=== PATIENT | female | born 1935 | race Caucasian/White ===

== ENCOUNTER 2023-12-16 14:12 | Inpatient (IN) | payer OTHER, SELFPAY ==
[2023-12-16 11:16] VITALS: BP 126/74
[2023-12-16 11:37] VITALS: BP 140/79
[2023-12-16 11:53] LABS: % Basophils 0.4 % (0-2); % Eosinophils 1.2 % (0-6); % Immature Granulocytes 0.3 % (0-0.5); % Monocytes 10.3 % (1.7-9.3); % Neutrophils 71.8 % (42.2-75.2); Absolute Basophils 0.1 10^3/uL (0-0.2); Absolute Eosinophils 0.1 10^3/uL (0-0.7); Absolute Lymphocytes 1.9 10^3/uL (1.2-3.4); Absolute Monocytes 1.2 10^3/uL (0.1-0.6); Absolute Neutrophils 8.4 10^3/uL (1.4-6.5); Hematocrit 35.2 % (37.0-47.0); Hemoglobin 13.1 g/dL (12.0-16.0); Mean Corp Hgb Conc. 37.2 g/dL (33.0-37.0); Mean Corpuscular Hgb 34.1 pg (27.0-31.0); Mean Corpuscular Volume 91.7 fL (81.0-99.0); Mean Platelet Volume 10.7 fL (7.4-10.4); Nucleated Red Blood Cells % 0 %; Platelet Count 231 10^3/uL (130-400); Red Blood Cell Count 3.84 10^6/uL (4.20-5.40); Red Cell Dist. Width 11.6 % (11.5-14.5); White Blood Cell Count 11.7 10^3/uL (4.8-10.8)
[2023-12-16 12:00] VITALS: BP 148/55
[2023-12-16 12:05] LABS: Blood Urea Nitrogen 22 mg/dl (7-17); Calcium 9.2 mg/dl (8.4-10.2); Carbon Dioxide 17 mmol/L (22-30); Chloride 89 mmol/L (98-107); Glucose 71 mg/dl (70-99); Sodium 125 mmol/L (135-145); eGFR > 60.00
--- NOTE | 2023-12-16 12:07 | ED.GENMED ---
History of Present Illness
General
Chief Complaint: Breathing Problem
Source: patient
Time Seen by Provider: 12/16/23 11:52
History of Present Illness
History of Present Illness:
88yoF with a history of coronary artery disease status post PCI, diastolic CHF, hypertension, and hyperlipidemia presenting with her for evaluation of shortness of breath. Patient reports exertional dyspnea for the past 3 weeks. She states
that she is unable to do her normal activities around the house without feeling short of breath. She also reports chest pressure with activity. She has no shortness of breath at rest and denies any orthopnea. She had a cough at symptom onset this
has since resolved. Patient denies any leg swelling. She also reports malaise and has been feeling confused. She has been drinking a lot of fluids over the past few days. Patient had a cardiac catheterization in January 2023 and ejection fraction
was 56% at that time.
Past History
Past History
ED Past Medical History: CAD, GERD, HTN, Hypercholesterolemia, [place] and Other (Diverticulitis, arthritis, macular degeneration, anxiety)
ED Past Surgical History: Other (Incarcerated hernia repair, colostomy and reversal, bilateral total hip replacements, cholecystectomy)
Social History
Tobacco: Former smoker
Alcohol: None
Personal:
Living: with family
Employment: Retired
Phy Exam
General Physical Exam
General Presentation: well appearing and no apparent distress
General age: appears stated age
General Skin: warm and dry
General Habitus: normal
General Mental: alert
ENT Exam
ENT Exam: normocephalic
Cardiovascular Exam
Cardiovascular Exam: regular rate/rhythm and no edema
Pulmonary Exam
Pulmonary Exam: lungs clear, no respiratory distress, no crackles and no wheezing
[place] Coma Scale
Eye Opening: Spontaneous
Verbal Response: Oriented
Motor Response: Obeys Commands
GCS Total Score: 15
Skin Exam
Skin Exam: normal color and warm/dry
Psychiatric Exam
Psychiatric Exam: normal mood/affect
Scores
Heart Failure Risk
Heart Failure Risk Score: Not Applicable
Course
Orders/Labs/Results
Orders:
Orders
12/16/23 11:22
EKG [Electrocardiogram (*1)] Urgent
Reason for Study: Shortness of Breath
EKG- Treatment ONCE
12/16/23 11:43
Basic Metabolic Panel Urgent
Complete Blood Count/With Diff Urgent
NT-proBNP Urgent
Troponin I Urgent
12/16/23 12:07
CR Chest - 2 Views Urgent
Comment:
Reason For Exam: SOB
12/16/23 13:27
Chloride, Urine [S] Urgent
Date Specimen was Collected: 12/16/23
Time Specimen was Collected: 13:25
Osmolality, Random Urine Urgent
Date Specimen was Collected: 12/16/23
Time Specimen was Collected: 13:25
Urine Sodium Urgent
Date Specimen was Collected: 12/16/23
Time Specimen was Collected: 13:25
12/16/23 13:47
Admit/Transfer Patient As Directed
Co-Sign Provider:
Level of Care: Inpatient admission
Assign to:: Telemetry
Physician / Group: [email or web address]
Diagnosis: MEJIA with ADL Exertional Chest pressure DDX: HFpEF flare
Reason for Telemetry: Acute Heart Failure
Date to Stop Telemetry: 12/19/23
Time to Stop Telemetry: 11:00
Reason for Hospitalization: MEJIA with ADL: POx hi 90s
Exertional Chest pressure
DDX: suspect acute on chr diastolic CHF
Expected length of stay greater than two midnights?: Yes
ELOS- Estimated Length of Stay in days: 3
I certify the patient meets the requirements for IP care: Yes
12/16/23 13:49
Code Status As Directed
Resuscitation Status: Full Code
12/16/23 14:56
Albuterol [ProAIR HFA INHALER] 2 puff INH R Q4HPRN PRN
Furosemide [Lasix] 40 mg IV NOW STA
Nitroglycerin Sublingual [Nitrostat (Sublingual)] 0.4 mg SL [id number] PRN
12/16/23 14:56
CARDIOLOGY CONSULT Routine
Consulting Provider: Remberto Shrestha
Was physician already notified: Yes
Reason for consult: MEJIA with ADL: POx hi 90s Exertional Chest pressure DDX: HFpEF flare
HF DIETARY CONSULT Routine
HF EDUCATOR CONSULT Routine
Comment:
Activity As Directed
Activity Level: With Assistance
Intake/ Output As Directed
Frequency: Per unit guidelines
Patient Education As Directed
Type: CHF folder
Comment: give on admission. Document in Interdisciplinary Education record
Sleep Apnea Assessment by RN As Directed
Comment:
Physician Instructions:
Vital Signs As Directed
Frequency: Other
Additional Instructions:: Q12 or per unit guidelines if more frequent.
Weight As Directed
Frequency: Daily
Type of Scale: Standing Scale
Comment: Daily morning weight. If unable to stand, use balanced bed scale.
Weight As Directed
Frequency: Once
Type of Scale: Standing Scale
Comment: Upon Admission. If unable to stand, use balanced bed scale.
Pulse Ox/cont/shift [RESP] Routine
Quantity: 1
Special Instructions: Daily pulse oximetry at rest. If greater than 92% at rest also obtain pulse oximetry
while ambulating as tolerated.
DX Deep Vein Thrombosis Video Routine
12/16/23 Dinner
Cholesterol Lowering
At Your Request: Full Participation
Fluid Restriction: 1200 mL/day (40 oz)
Cholesterol Lowering: Sodium, 2 Gram
12/16/23 15:57
Potassium Urgent
12/16/23 18:00
Atorvastatin [Lipitor] 10 mg PO QPM
Enoxaparin Sodium [Lovenox] 40 mg SC QPM
12/17/23 06:00
Electrocardiogram (*1) IN AM
Reason for Study: Other
Other Reason for Exam: heart failure
Basic Metabolic Panel IN AM
Cardiovascular Evaluation IN AM
Complete Blood Count/No Diff IN AM
Lkwmy-Vhnw-Xmukidn IN AM
12/17/23 08:00
Amlodipine [Norvasc] 5 mg PO DAILY
Aspirin Low Dose EC [Aspir Low (Enteric Coated)] 81 mg PO DAILY
Losartan [Cozaar] 50 mg PO DAILY
Metoprolol Xl [Toprol Xl] 25 mg PO DAILY
12/18/23 06:00
Basic Metabolic Panel IN AM
12/19/23 06:00
Basic Metabolic Panel IN AM
12/19/23 11:00
DC Protocol for Telemetry ONCE
Abnormal Lab Results
12/16/23 12/16/23
11:43 13:27
WBC 11.7 H 10^3/uL
(4.8-10.8)
RBC 3.84 L 10^6/uL
(4.20-5.40)
Hct 35.2 L %
(37.0-47.0)
MCH 34.1 H pg
(27.0-31.0)
MCHC 37.2 H g/dL
(33.0-37.0)
MPV 10.7 H fL
(7.4-10.4)
Absolute Neuts (auto) 8.4 H 10^3/uL
(1.4-6.5)
Absolute Monos (auto) 1.2 H 10^3/uL
(0.1-0.6)
Lymphocytes % 16.0 L %
(20.5-51.1)
Monocytes % 10.3 H %
(1.7-9.3)
Sodium 125 L mmol/L
(135-145)
Chloride 89 L mmol/L
(98-107)
Carbon Dioxide 17 L mmol/L
(22-30)
BUN 22 H mg/dl
(7-17)
Urine Osmolality 251 L mOsm/kg
(300-900)
12/16/23 11:43
12/16/23 13:24
Vital Signs
Initial and Last Documented VS:
Initial Vital Signs
Temp Pulse Resp BP Pulse Ox
97.8 F 80 20 126/74 97
12/16/23 11:16 12/16/23 11:16 12/16/23 11:16 12/16/23 11:16 12/16/23 11:16
Last Documented Vital Signs
Temp Pulse Resp BP Pulse Ox
97.8 F 69 16 173/56 97
12/16/23 19:19 12/16/23 19:19 12/16/23 19:19 12/16/23 19:19 12/16/23 19:19
MDM/Problems Addressed
Differential Diagnosis Includes:
88yoF here with exertional dyspnea x several weeks. She has also overall not been feeling well and feels confused. She is afebrile and hemodynamically stable. She appears euvolemic on exam. Differential diagnosis includes but is not limited to:
angina, pneumonia, dehydration, less likely CHF exacerbation
Initial ED plan: Check cardiac labs, EKG, and CXR.
*EKG
Interpreted by ED Provider?: Yes
EKG Intrepretation Date: 12/16/23
Heart Rate: 66
Rate: normal
Rhythm: sinus
[place]: normal axis
Interval: normal interval
QRS Pattern: normal QRS
Ischemia: no ischemia
*Critical Care Note
Total Time (30-74mins, 75-104mins- exclusive of procedures): Not Applicable
Update Note
Update Note:
Labs reveal a sodium of 125 which appears to be new. Chloride 89 and bicarb 17. BNP is decreased from prior and no pulmonary edema present on CXR. EKG shows NSR without ischemic changes and troponin WNL. Urine studies ordered and she was admitted
for further evaluation.
ED Attending Note
-
Portions of this chart may have been created with voice recognition software.� Occasional wrong word or��sound alike� substitutions may have occurred due to the inherent limitations of voice recognition software.
Discharge Plan
Departure
Patient Disposition: Admit
Date of Disposition: 12/16/23
Time of Disposition: 13:28
Presentation/result/management discussed w/ accepting MD/DO: Hospitalist
Discharge Problem:
Hyponatremia, Exertional dyspnea
Interventions
Interventions:
*Risk Screen - Suicide Last Done: 12/16/23 11:16
*General Assessment Last Done: 12/16/23 11:16
*Neglect/Abuse Screening Last Done: 12/16/23 14:48
ED- Fall Risk Assessment Last Done: 12/16/23 14:48
*ED COVID-19 Vaccine History Last Done: 12/16/23 15:00
*Nursing Disposition Last Done: 12/16/23 14:48
ED- Cardiac Assessment Last Done: 12/16/23 11:45
ED- Pulmonary Assessment Last Done: 12/16/23 11:45
Discharge Date and Time
Discharge Date/Time: 12/16/23 14:50
[2023-12-16 12:16] LABS: NT-proBNP 2060 pg/ml; Troponin I 0.019 ng/ml
--- NOTE | 2023-12-16 13:27 | HPS.HSE ---
Addendum entered and electronically signed by Felix Sotomayor MD 12/16/23 15:43:
CBC acrd seen patient
Case d/w CBC card
Card suggest :
- dose not seems volume overloaded
- she drank 2l of free water the last two day
- weight is down
- low proBNP
- Clear CXR
Suggest renal consult - consulted
STOP Lasix , was not given
Original Note:
Family Physician
-
Family Physician: Vinnie Hsu
Chief Complaint
-
SOB with ADL
History of Present Illness
88F HX chr diastolic CHF, preserved LVEF ( 65-70) stage I diastolic dysfunction, mild MR, HTN seen at ER for SoB
- reports exertional dyspnea with normal ADL in the house for about 3 weeks
- associated exertional netta pressure
- denied SoB at rest
- denied leg swelling
- on ARB/HCTZ and BB
HX cardiac catheterization in January 2023 and ejection fraction was 56% at that time.
Medical History
Past Medical History
Past Medical History: Reports CHF (diastlic CHF), GERD, HTN, Hypercholesterolemia, [place], Valvular Disease (Mild mitral regurgitation.Trace tricuspid regurgitation) and Other (Diverticulitis )
Past Surgical History: Reports Cholecystectomy and Orthopedic (Bilateral total hip replacement)
Additional Past Surgical History:
incarcerated hernia repair
Colostomy dorsal
Social History
Tobacco: Former Smoker
Alcohol: None
Drug: None
Personal:
Living: With Family
Family History
Family History: Not pertinent
Allergies / Home Medications
Allergies reflects when Allergies were last updated in [employer].
Home Medications with original date entered in [employer]
Allergy/Medication List:
Allergies
Allergy/AdvReac Type Severity Reaction Status Date / Time
latex [Latex] Allergy Itching Verified 09/15/24 11:21
lisinopril Allergy coughing Verified 12/16/23 11:21
Home Medications
omeprazole 40 mg capsule,delayed release 40 mg PO DAILY Gastrointestinal issue 06/25/08
albuterol sulfate 90 mcg/actuation aerosol inhaler 2 puff inhalation R Q4HPRN PRN sob/wheezing 08/17/21
metoprolol succinate 25 mg tablet,extended release 24 hr 25 mg PO DAILY Blood pressure 08/17/21
nitroglycerin 0.4 mg sublingual tablet 0.4 mg sublingual [id number] PRN chest pain 08/17/21
simvastatin 20 mg tablet 20 mg PO QPM High cholesterol 08/17/21
amlodipine 5 mg tablet 5 mg PO DAILY #90 tabs 02/09/23
aspirin 81 mg tablet,delayed release 81 mg PO DAILY 02/09/23
losartan 100 mg-hydrochlorothiazide 25 mg tablet 1 tab PO DAILY #90 tabs 02/09/23
Review of Systems
-
Constitutional: Reports No Symptoms
EENT: Reports No Symptoms
Respiratory: Reports Trouble Breathing
Cardiac: Reports Other (chest pressure with exertion )
Abdomen/GI: Reports No Symptoms
: Reports No Symptoms
Musculoskeletal: Reports No Symptoms
Skin: Reports No Symptoms
Neurological: Reports No Symptoms
Endocrine: Reports No Symptoms
Hematologic/Lymphatic: Reports No Symptoms
Psych: Reports No Symptoms
Physical Exam
Vital Signs
Vital Signs
Temp Pulse Resp BP Pulse Ox
97.8 F 70 16 140/79 99
12/16/23 11:16 12/16/23 11:37 12/16/23 11:37 12/16/23 11:37 12/16/23 11:45
Physical Exam
General: Well Developed, Well Nourished and No Apparent Distress
HEENT: NormoCephalic, Moist mucous membranes and Atraumatic
Respiratory: Clear
Cardiac: S1/S2 and Regular Rhythm; No Murmur or Rub
GI: Soft, Non Tender, Non Distended and Normal Bowel Sounds; No Organomegaly
Rectal: Deferred by Provider
Musculoskeletal: No Clubbing, No Cyanosis and No Edema
Skin: No Rash
Neuro: Nonfocal/grossly intact
Laboratory Results
-
12/16/23 11:43
Laboratory Results
Total Bilirubin Cancelled 12/16/23 11:43
AST Cancelled 12/16/23 11:43
ALT Cancelled 12/16/23 11:43
Alkaline Phosphatase Cancelled 12/16/23 11:43
Troponin I 0.019 ng/ml 12/16/23 11:43
Data Reviewed
-
Diagnostic Radiology: Report Reviewed by me
Medical Tests (Nuc Med, Echo, EKG etc): Report Reviewed by me
Lab Data: Labs Reviewed by me
Old Records: Reviewed
Impression/Plan
-
Vital Signs
Temp Pulse Resp BP Pulse Ox
97.8 F 70 16 140/79 99
12/16/23 11:16 12/16/23 11:37 12/16/23 11:37 12/16/23 11:37 12/16/23 11:45
08/21/21
02/05/23
12/16/23
Actual Weight 71.271 kg 75.9 kg 71.5 kg
Laboratory Tests
08/17/21 02/05/23 12/16/23
19:12 12:23 11:43
WBC 11.7 H
Sodium 140 125 L
Chloride 89 L
Carbon Dioxide 17 L
BUN 22 H
Creatinine 0.8
eGFR > 60.00
Troponin I 0.019
Ckp-O-Xyngiujcgkz Pept 4380
CXR
No acute disease of the chest
EKG
NORMAL SINUS RHYTHM
NORMAL ECG
WHEN COMPARED WITH ECG OF 17-AUG-2021 19:17,
NO SIGNIFICANT CHANGE WAS FOUND
08/18/21 LVEF 65-70
Stage I diastolic dysfunction suggestive of abnormal relaxation.
Severely dilated left atrium. Moderately dilated right atrium.
Mitral valve opens normally. Mild mitral regurgitation.
Trace tricuspid regurgitation. Estimated pulmonary artery pressure of 20-25 mmHg.
Last hospitalist admission:
DATE OF ADMISSION: 08/17/2021 - DATE OF DISCHARGE: 08/21/2021
DISCHARGE DIAGNOSIS:
1. Congestive heart failure.
2. Pneumonia/bronchitis.
ASSESSMENT & PLAN
Pending Rx reconciliation
Hyponatremia suspect due to HCTZ
Wt is somewhat stable
Clinically looks euvolemic
-Sodium 125
-Await Urine Na, Ur Osm
-Held HCTZ
-Fluid restriction 1200cc
MEJIA with ADL: POx hi 90s: Not orthopneic
Exertional Chest pressure; currently CP free.
DDX: suspect acute on chr diastolic CHF
pro BNP 1999s seems lower than prior admission
- NEG CXR
- NEG TPN, Unremarkable EKG
- Trend TPNI
- IV Lasix 40 x1
- cont Losartan and Metoprol succinate
- Daily Wt plus fluid restriction
- monitoring engineer
- CBC Card consulted
HX COPD
- cont. SYSTEMS PROJECT MANAGER Meds
Benign Hypertension
- stable
- Hold HCTZ to hyponatremia
- Cont. SYSTEMS PROJECT MANAGER Losartan and BB
DVT Px: LMWH
Code: Full code
IP TLM
[2023-12-16 13:42] LABS: Osmolality Urine 251 mOsm/kg (300-900)
[2023-12-16 13:54] LABS: Urine Sodium 37 mmol/L (30-90)
--- NOTE | 2023-12-16 14:38 | CON.CAR ---
Consultation
Consultation Request
Date/Time Consultation Requested: 12/16/23
Date/Time Consultation Performed: 12/16/23
Requesting Provider: Dr Sotomayor
Performing Provider: Dr Shrestha (Primary Dr Farmer/paulette Keen)
Reason for Consultation: chf
Medical History
-
Chief Complaint: feels bad for a while
History of Present Illness:
88 yo female with CAD (mid LAD PCI 2007 with KLEVER), HTN, HLD, GERD, and PMR who presents for been feeling badly for the last week or so. She reports that she had been having some swelling in her left leg where she had an old injury but that has been
present for some time. She just been feeling off and not thinking clearly. Her granddaughter told her 2 days ago to drink a bunch of water to 'flush out her system' she did drink 2 L of free water the last 2 days in a row. With that intake she
reports diarrhea. Today she presents because she just sick of feeling badly. She does states she is short of breath with exertion if she goes to a store but that has been present for quite some time. No orthopnea, PND or chest pain or pressure.
She is not taking any diuretic therapy. I do not think she is on the losartan�hydrochlorothiazide any longer rather just losartan. Although she is not a reliable historian given some confusion.
Past Medical History
Past Medical History: CAD (mLAD PCI), COPD, GERD, HTN, Hypercholesterolemia and Other (PMR)
Past Surgical History: Cholecystectomy and Other (hip replacement bl )
Social History
Tobacco: Former Smoker (>10 year)
Family History
Family History: Reviewed & Not Pertinent
Allergies / Home Medications
Allergy/AdvReac Type Severity Reaction Status Date / Time
latex [Latex] Allergy Itching Verified 12/16/23 11:21
lisinopril Allergy coughing Verified 12/16/23 11:21
�Medication �Instructions �Recorded �Confirmed �Type
omeprazole 40 mg capsule,delayed 40 mg PO DAILY Gastrointestinal 06/25/08 02/09/23 History
release issue
albuterol sulfate 90 mcg/actuation 2 puff inhalation R Q4HPRN PRN 08/17/21 02/09/23 History
aerosol inhaler sob/wheezing
metoprolol succinate 25 mg 25 mg PO DAILY Blood pressure 08/17/21 02/09/23 History
tablet,extended release 24 hr
nitroglycerin 0.4 mg sublingual 0.4 mg sublingual [id number] PRN 08/17/21 02/09/23 History
tablet chest pain
simvastatin 20 mg tablet 20 mg PO QPM High cholesterol 08/17/21 02/09/23 History
amlodipine 5 mg tablet 5 mg PO DAILY #90 tabs 02/09/23 Rx
aspirin 81 mg tablet,delayed 81 mg PO DAILY 02/09/23 02/09/23 History
release
losartan 100 1 tab PO DAILY #90 tabs 02/09/23 Rx
mg-hydrochlorothiazide 25 mg tablet
Review of Systems
-
All other systems: Negative unless noted
Physical Exam
Vital Signs
Temp Pulse Resp BP Pulse Ox
97.8 F 64 20 148/55 99
12/16/23 11:16 12/16/23 13:00 12/16/23 13:00 12/16/23 12:00 12/16/23 13:00
Lab Results
12/16/23 11:43
Troponin I 0.019 ng/ml 12/16/23 11:43
Dkh-X-Tistnujnpow Pept 2060 pg/ml 12/16/23 11:43
Physical Exam
General: Well Developed, Well Nourished and No Apparent Distress
Respiratory: Clear; Negative Wheezes, Crackles or Rhonchi
Cardiac: S1/S2, Regular Rhythm and Peripheral Edema (MEJIA, non pitting bilaterally); Negative Murmur or Rub
GI: Soft
Neuro: Oriented, AO x 3 and Other (Loses her train of thought at times when more speaking. She states she feels confused)
Impression / Plan
-
Ms. Das is an 88-year-old female that we are asked to evaluate for possible CHF. She has a known history of prior CAD with a mid LAD stenting, HFpEF, hypertension and hyperlipidemia who has been increasingly confused. Most pertinent finding is
a sodium level of 125.
Feeling unwell, seems most likely linked to hyponatremia.
Hyponatremia: Na 125 prior 140
-high risk situation needs intensive monitoring of labs
-She does not appear hypervolemic to me. Her chest x-ray without any volume overload, her weight is lower than her last office visit, her proBNP is lower than the last time it was checked by half, her BUN to creatinine ratio is slightly up and her
chloride is down.
-I would hold off giving Lasix for now.
-Recommend nephrology consult.
HFpEF: Chronic does not appear grossly volume overloaded to me.
-Would continue typical medical therapy.would hold off on MRA or SGLT2 2 inhibitor initiation at this time given electrolyte abnormalities. This could be considered in the future.
htn Chronic stable
hld Chronic stable
CAD: s/p prior PCI mLAD
-Chronic stable
I discussed my recommendations with Dr. Sotomayor the admitting doctor.
Cath 02/09/2023
HEMODYNAMIC DATA
AO: 203/95
LV: 203/16
LEFT VENTRICULOGRAPHY: Normal left ventricular function with EF 56%
CORONARY ANGIOGRAPHY
Dominance: Right
Left Main: Normal
LAD: Widely patent mid LAD stent (KLEVER 2007) with no restenosis. The remainder of the LAD has mild luminal irregularities
Circumflex: Mild luminal irregularities. There is 30% mid circumflex stenosis. There is 20% proximal stenosis of the large OM1.
RCA: 20% mid RCA stenosis with otherwise mild luminal irregularities
-
1: Significant systemic hypertension
2: Normal left trickle function with EF 56%
3. Widely patent mid LAD stent (2007) with mild residual CAD
4. We will make significant medication changes including the following: Stop Lasix (which the patient has not taken for the past 3 weeks). Increase losartan 50 mg daily to losartan HCT 100/25. Add amlodipine 5 mg daily.
08/18/21:
CONCLUSIONS
Left ventricular ejection fraction is 65-70%, by visual assessment. Normal
regional wall motion. Stage I diastolic dysfunction suggestive of abnormal
relaxation.
Normal right ventricular size and function.
Severely dilated left atrium. Moderately dilated right atrium.
Mitral valve opens normally. Mild mitral regurgitation.
Trileaflet aortic valve. Aortic valve opens normally.
Trace tricuspid regurgitation. Estimated pulmonary artery pressure of 20-25
mmHg.
Data Reviewed
-
EKG: Tracing Personally Visualized and interpreted (NSR)
Radiology: Image Personally Visualized and interpreted (no pulmonary edema)
Labs: Labs Reviewed by me (hgb 13.1 plt 231 na 125 probnp 2059 last 4380, tro 0.019)
[2023-12-16 15:00] VITALS: BP 143/72
--- NOTE | 2023-12-16 16:18 | W.CON.NEPH ---
Consultation
-
Date/Time Consultation Requested: 12/16/23 1543
Date/Time Consultation Performed: 12/16/23 1630
Requesting Provider: Felix Montague
Performing Provider: Allison Barrios
Reason for Consultation: Hyponatremia
Medical History
-
Chief Complaint: SOB
History of Present Illness:
88 yo female with pMH of HTN on losratan, metoprolol, Amlodipine (not taking HCTZ), CAD (mid LAD PCI 2007 with KLEVER) on ASA, Imdur, HLD on statin, GERD on PPI, DCHF on lasix(stopped taking not realizing a while ago) and PMR who presents for been
feeling badly for the last week. She reports that she had been having some swelling in her left leg where she had an old injury but that has been present for some time along with left breast edema with some pain and she though drinking more liquids
would flush out as directed by her grand daughter, which she took 2lit of water for last 2days. From this she had loose BMs. Symptoms continue to worse hence came to ER. She has arthritic pain and takes tylenol and rarely percocet. She has SOB even
just walking to rest room for some time. She just been feeling off and not thinking clearly, feels off balance but no falls. No orthopnea, PND or chest pain or pressure. SHe did struggle to provide history. No reported fever or dizziness. No
dysuria. On labs noted sodium 125, no previous h/o hyponatremia.
Past Medical History
CAD (mid LAD PCI 2007 with KLEVER), HTN, HLD, GERD, PMR
Past Surgical History: Cholecystectomy, Orthopedic (hip replacement bilat, right shoulder surg) and Other (incarcerated hernia repair Colostomy reversal)
Social History
Tobacco: Former Smoker
Alcohol: None
Drug: None
Personal:
Living: With Family
Family History
Family History: Not Pertinent
Allergies / Home Medications
Allergy/AdvReac Type Severity Reaction Status Date / Time
latex [Latex] Allergy Itching Verified 12/16/23 11:21
lisinopril Allergy coughing Verified 12/16/23 11:21
�Medication �Instructions �Recorded �Confirmed �Type
omeprazole 40 mg capsule,delayed 40 mg PO DAILY Gastrointestinal 06/25/08 12/16/23 History
release issue
albuterol sulfate 90 mcg/actuation 2 puff inhalation R Q4HPRN PRN 08/17/21 02/09/23 History
aerosol inhaler sob/wheezing
metoprolol succinate 25 mg 25 mg PO DAILY Blood pressure 08/17/21 12/16/23 History
tablet,extended release 24 hr
nitroglycerin 0.4 mg sublingual 0.4 mg sublingual L8MP3PMH PRN 08/17/21 02/09/23 History
tablet chest pain
simvastatin 20 mg tablet 20 mg PO QPM High cholesterol 08/17/21 12/16/23 History
amlodipine 5 mg tablet 5 mg PO DAILY #90 tabs 02/09/23 12/16/23 Rx
aspirin 81 mg tablet,delayed 81 mg PO DAILY 02/09/23 12/16/23 History
release
losartan 100 1 tab PO DAILY #90 tabs 02/09/23 12/16/23 Rx
mg-hydrochlorothiazide 25 mg tablet
furosemide 20 mg PO Daily 12/16/23 12/16/23 History
isosorbide mononitrate 30 mg PO DAILY 12/16/23 12/16/23 History
Review of Systems
-
All complete 12 point ROS have been inquired and found negative other than stated in HPI
Physical Exam
Vital Signs
Vital Signs
Temp Pulse Resp BP Pulse Ox
97.8 F 64 20 148/55 99
12/16/23 11:16 12/16/23 13:00 12/16/23 13:00 12/16/23 12:00 12/16/23 13:00
Lab Results
WBC 11.7 10^3/uL (4.8-10.8) H 12/16/23 11:43
RBC 3.84 10^6/uL (4.20-5.40) L 12/16/23 11:43
Hgb 13.1 g/dL (12.0-16.0) 12/16/23 11:43
Hct 35.2 % (37.0-47.0) L 12/16/23 11:43
Plt Count 231 10^3/uL (130-400) 12/16/23 11:43
Sodium 125 mmol/L (135-145) L 12/16/23 11:43
Chloride 89 mmol/L (98-107) L 12/16/23 11:43
Carbon Dioxide 17 mmol/L (22-30) L 12/16/23 11:43
BUN 22 mg/dl (7-17) H 12/16/23 11:43
Creatinine 0.8 mg/dL (0.6-1.0) 12/16/23 11:43
eGFR > 60.00 12/16/23 11:43
Glucose 71 mg/dl (70-99) 12/16/23 11:43
Calcium 9.2 mg/dl (8.4-10.2) 12/16/23 11:43
Ads-A-Mcpdvqaeweb Pept 2060 pg/ml 12/16/23 11:43
Albumin Cancelled 12/16/23 11:43
CXR:
FINDINGS:
Lungs: The lungs are clear. No pleural effusion or pneumothorax.
Heart: Cardiac and mediastinal contours are unremarkable aside from severe cartilage calcification.
Osseous structures: There has been a right shoulder replacement. 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 This is progressed.
IMPRESSION:
No acute disease of the chest
Physical Exam
General: Awake, Alert, Oriented, AOx3, No Distress, Nontoxic and Other (slow to respond)
HEENT: EOMI, Anicteric, Oropharynx Clear/Moist, Neck Supple, Trachea Midline and No JVD
Respiratory: Clear, Normal Excursion and Nonlabored Respirations
Cardiac: S1/S2 and Regular Rate/Rhythm
Abdomen: Soft, Nontender and Nondistended
Musculoskeletal: No Cyanosis and Edema (1+left>right)
Skin: No Rash
Neuro: Nonfocal/Grossly Intact
Psych: Appropriate
Data Reviewed
-
Radiology: Report Reviewed by me and Discussed with Patient
Labs: Labs Reviewed by me, Discussed with Nurse and Discussed with Patient
Assessment/Plan
-
IMP:
Hyponatremia
A gap met acidosis
DCHF
CAD s/p stent
HTN
COPD
HLD
GERD
PMR
Leucocytosis
Plan:
A/w SOB but overall gen weakness, found sodium 125
Hyponatremia-new
U osmo 251 suggest ADH activity(chr arthritic pain and CHF), U na 37
BNP is lower than before and CXR clear, cards feels no hypervolemia, has chr edema
high free water intake for last 2days per history likely caused more progression of hyponatremia
BP stable and no hypotension
check U acid if high likely use 3% saline if not samsca/lasix
She has anion gap of 19, check L acid, ASA, tylenol level, po bicarb meantime
check serum osmo
start FR 40 ounces/day
likely resume lasix soon
labs in am
d/w pt
[2023-12-16 17:51] VITALS: BMI 28.3
[2023-12-16] MEDS: LOVENOX 40 MG SC (17:51)
[2023-12-16] MEDS: LIPITOR 10 MG PO (17:52)
[2023-12-16 18:20] LABS: Troponin I 0.018 ng/ml
[2023-12-16 18:51] LABS: Osmolality Serum 266 mOsm/kg (275-300)
[2023-12-16 18:55] LABS: Acetaminophen < 10 ug/ml (10-30); Salicylate < 1.0 mg/dl (2.0-20.0); Uric Acid 5.1 mg/dl (2.5-6.2)
[2023-12-16 19:19] VITALS: BP 173/56
[2023-12-16] MEDS: SODIUM BICARBONATE 650 MG PO (19:57)
[2023-12-16] MEDS: SAMSCA 7.5 MG PO (20:16)
[2023-12-16 23:17] VITALS: BP 138/55
[2023-12-17 00:13] LABS: Troponin I 0.025 ng/ml
[2023-12-17 03:24] VITALS: BP 160/67
[2023-12-17 06:00] VITALS: BMI 28.1
[2023-12-17 07:30] VITALS: BP 135/55
[2023-12-17 07:44] LABS: Hematocrit 32.5 % (37.0-47.0); Hemoglobin 12.1 g/dL (12.0-16.0); Mean Corp Hgb Conc. 37.2 g/dL (33.0-37.0); Mean Corpuscular Hgb 33.5 pg (27.0-31.0); Mean Platelet Volume 10.2 fL (7.4-10.4); Platelet Count 227 10^3/uL (130-400); Red Blood Cell Count 3.61 10^6/uL (4.20-5.40); Red Cell Dist. Width 11.6 % (11.5-14.5); White Blood Cell Count 9.1 10^3/uL (4.8-10.8)
[2023-12-17 08:19] LABS: ALT (SGPT) 51 U/L (0-35); AST (SGOT) 95 U/L (14-36); Albumin 4.1 g/dl (3.5-5.0); Alkaline Phosphatase 75 U/L (38-126); Blood Urea Nitrogen 28 mg/dl (7-17); Calcium 9.3 mg/dl (8.4-10.2); Carbon Dioxide 22 mmol/L (22-30); Chloride 93 mmol/L (98-107); Direct Bilirubin 0.3 mg/dl (0.0-0.4); Estimated Creatinine Clearance 40 ml/min; Glucose 76 mg/dl (70-99); HDL Cholesterol 55 mg/dl; LDL Cholesterol, Calculated 53 mg/dl; Potassium 4.1 mmol/L (3.5-5.1); Sodium 131 mmol/L (135-145); Total Bilirubin 0.9 mg/dl (0.2-1.3); Total Cholesterol 134 mg/dl (50-199); Total Protein 6.6 g/dl (6.3-8.2); Triglyceride 131 mg/dl (10-149); Very Low Density Lipoprotein 26 mg/dl (0-30); eGFR > 60.00
[2023-12-17] MEDS: ASPIR LOW (ENTERIC COATED) 81 MG PO (08:57)
[2023-12-17] MEDS: TOPROL XL 25 MG PO (08:57)
[2023-12-17] MEDS: COZAAR 50 MG PO (08:58)
[2023-12-17] MEDS: NORVASC 5 MG PO (08:58)
[2023-12-17] MEDS: FLUSH (NSS) 1 FLUSH IV (08:58)
[2023-12-17] MEDS: SODIUM BICARBONATE 650 MG PO (08:58)
--- NOTE | 2023-12-17 09:10 | W.PN.CD ---
Today's Communication / Plan
-
Hyponatremia improving
No new cardiology recommendations.
We will sign off please call with questions/concerns.
Impression / Plan
-
Ms. Das is an 88-year-old female that we are asked to evaluate for possible CHF. She has a known history of prior CAD with a mid LAD stenting, HFpEF, hypertension and hyperlipidemia who has been increasingly confused. Most pertinent finding is
a sodium level of 125.
Feeling unwell,
- Improved with improvement of Hyponatremia, cause?
Hyponatremia: Improving 131 today from 125
- appreciate nephrology input
HFpEF: Chronic does not appear grossly volume overloaded to me.
-Would continue typical medical therapy.would hold off on MRA or SGLT2 2 inhibitor initiation at this time given electrolyte abnormalities. This could be considered in the future.
- stable no evidence of congestion
htn Chronic stable
hld Chronic stable
CAD: s/p prior PCI mLAD
-Chronic stable
Cath 02/09/2023
HEMODYNAMIC DATA
AO: 203/95
LV: 203/16
LEFT VENTRICULOGRAPHY: Normal left ventricular function with EF 56%
CORONARY ANGIOGRAPHY
Dominance: Right
Left Main: Normal
LAD: Widely patent mid LAD stent (KLEVER 2007) with no restenosis. The remainder of the LAD has mild luminal irregularities
Circumflex: Mild luminal irregularities. There is 30% mid circumflex stenosis. There is 20% proximal stenosis of the large OM1.
RCA: 20% mid RCA stenosis with otherwise mild luminal irregularities
-
1: Significant systemic hypertension
2: Normal left trickle function with EF 56%
3. Widely patent mid LAD stent (2007) with mild residual CAD
4. We will make significant medication changes including the following: Stop Lasix (which the patient has not taken for the past 3 weeks). Increase losartan 50 mg daily to losartan HCT 100/25. Add amlodipine 5 mg daily.
08/18/21:
CONCLUSIONS
Left ventricular ejection fraction is 65-70%, by visual assessment. Normal
regional wall motion. Stage I diastolic dysfunction suggestive of abnormal
relaxation.
Normal right ventricular size and function.
Severely dilated left atrium. Moderately dilated right atrium.
Mitral valve opens normally. Mild mitral regurgitation.
Trileaflet aortic valve. Aortic valve opens normally.
Trace tricuspid regurgitation. Estimated pulmonary artery pressure of 20-25
mmHg.
Physical Exam
Vital Signs/Labs
Vital Signs
Temp Pulse Resp BP Pulse Ox
98.2 F 80 24 135/55 99
12/17/23 07:30 12/17/23 08:58 12/17/23 07:30 12/17/23 08:58 12/17/23 08:52
12/16/23 12/17/23 12/18/23
06:59 06:59 06:59
Actual Weight 153 lb 4 oz
12/17/23 07:28
12/17/23 07:28
Triglycerides 131 mg/dl (10-149) 12/17/23 07:28
LDL Cholesterol, Calc 53 mg/dl 12/17/23 07:28
VLDL Cholesterol, Calc 26 mg/dl (0-30) 12/17/23 07:28
HDL Cholesterol 55 mg/dl 12/17/23 07:28
12/16/23
11:43
Fnp-C-Oautqbvkrbr Pept 2059
LAB Results
12/16/23 12/16/23 12/16/23
11:43 14:56 17:47
Troponin I 0.019 Cancelled 0.018
12/16/23 12/16/23
20:56 23:40
Troponin I Cancelled 0.025 D
Physical Exam
Constitutional: No acute distress and Comfortable
EENT: Anicteric
Cardiovascular: Rhythm & rate is regular and Pedal edema is absent
Respiratory: Respiratory effort normal and Lungs clear to auscul.
GI: Soft
Neuro/Psych: AO x 3
Data Reviewed
-
Date of Service: December 17, 2023
EKG: Tracing Personally Visualized and interpreted (sr)
Echo: Report Reviewed by me
Labs: Labs Reviewed by me
--- NOTE | 2023-12-17 10:59 | W.PN.NEPH.PH ---
Today's Communication / Plan
-
samsca
Assessment/Plan
-
IMP:
Hyponatremia
A gap met acidosis
DCHF
CAD s/p stent
HTN
COPD
HLD
GERD
PMR
Leucocytosis
Plan:
stop bicarb
follow BMP
samsca again today
restart lasix tomorrow
-
-
Date of Service: December 17, 2023
CC / HPI / ROS
-
Chief Complaint:
hyponatremia
History of Present Illness:
Na up to 131 with samsca
LFTs elevated
BP stable on multidrug regimen
acidosis better with bicarb
Review of Systems:
no CP/SOB
Labs
-
Labs:
WBC 9.1 10^3/uL (4.8-10.8) 12/17/23 07:28
RBC 3.61 10^6/uL (4.20-5.40) L 12/17/23 07:28
Hgb 12.1 g/dL (12.0-16.0) 12/17/23 07:28
Hct 32.5 % (37.0-47.0) L 12/17/23 07:28
Plt Count 227 10^3/uL (130-400) 12/17/23 07:28
Sodium 131 mmol/L (135-145) L 12/17/23 07:28
Potassium 4.1 mmol/L (3.5-5.1) 12/17/23 07:28
Chloride 93 mmol/L (98-107) L 12/17/23 07:28
Carbon Dioxide 22 mmol/L (22-30) 12/17/23 07:28
BUN 28 mg/dl (7-17) H 12/17/23 07:28
Creatinine 0.9 mg/dL (0.6-1.0) 12/17/23 07:28
eGFR > 60.00 12/17/23 07:28
Glucose 76 mg/dl (70-99) 12/17/23 07:28
Calcium 9.3 mg/dl (8.4-10.2) 12/17/23 07:28
Lxw-T-Xyqobdrmgfv Pept 2060 pg/ml 12/16/23 11:43
Albumin 4.1 g/dl (3.5-5.0) 12/17/23 07:28
Physical Exam
-
Vital Signs:
Vital Signs
Temp Pulse Resp BP Pulse Ox
98.2 F 80 24 135/55 99
12/17/23 07:30 12/17/23 08:58 12/17/23 07:30 12/17/23 08:58 12/17/23 08:52
Cardiovascular:: Regular rate and rhythm
Respiratory:: Bilateral: Coarse
Lung Excursion:: Normal
Abdomen:: Nontender and Soft
Bowel Sounds:: Normal
Extremity Edema:: None: Bilateral:
[2023-12-17 11:15] VITALS: BP 135/75
[2023-12-17] MEDS: SAMSCA 7.5 MG PO (11:47)
[2023-12-17] MEDS: TYLENOL 650 MG PO (12:16)
--- NOTE | 2023-12-17 12:51 | W.DS.TRANS ---
DC Summary - [employer]
-
Discharge Instructions:
Discharge Diagnosis/Procedures Hyponatremia
Diet Regular
Blood Work BMP in one week
Instructions: *CBC Heart Failure Instructions
Stand-Alone Forms:
Changes to Home Medications: Yes
Discharge Medications:
DC Medications w/original date entered in [facility]
omeprazole 40 mg capsule,delayed release 40 mg PO DAILY Gastrointestinal issue 06/25/08
albuterol sulfate 90 mcg/actuation aerosol inhaler 2 puff inhalation R Q4HPRN PRN sob/wheezing 08/17/21
metoprolol succinate 25 mg tablet,extended release 24 hr 25 mg PO DAILY Blood pressure 08/17/21
nitroglycerin 0.4 mg sublingual tablet 0.4 mg sublingual [id number] PRN chest pain 08/17/21
simvastatin 20 mg tablet 20 mg PO QPM High cholesterol 08/17/21
amlodipine 5 mg tablet 5 mg PO DAILY #90 tabs 02/09/23
aspirin 81 mg tablet,delayed release 81 mg PO DAILY 02/09/23
furosemide 20 mg PO Daily Fluid Retention/Swelling 12/16/23
isosorbide mononitrate 30 mg PO DAILY angina 12/16/23
losartan 50 mg tablet 50 mg PO DAILY #30 tabs 12/17/23
Home Medication Changes
HCTZ stopped
Pending Results: No
[2023-12-19 07:40] LABS: 24 Hour Urine Total Volume Not Provided mL; Chloride, Urine 35 mmol/L; Creatinine, Urine per Volume 49 mg/dL; Urine Collection Length Not Provided hr
== END 2023-12-17 14:35 | disposition home or self-care (01) | DRG 641 ==
LOC: 4 EAST ACU 14:12
PROVIDERS: Emergency Medicine; Physician Assistant; ADMITTING PHYSICIAN Internal Medicine; ATTENDING PHYSICIAN Internal Medicine; CONSULT PHYSICIAN Internal Medicine; CONSULT PHYSICIAN Internal Medicine Cardiovascular Disease; EMERGENCY PHYSICIAN Emergency Medicine; FAMILY PHYSICIAN Family Medicine
DX: E87.1 Hypo-osmolality and hyponatremia (principal); I50.32 Chronic diastolic (congestive) heart failure; I11.0 Hypertensive heart disease with heart failure; J44.9 Chronic obstructive pulmonary disease, unspecified; E87.20 Acidosis, unspecified; I25.10 Atherosclerotic heart disease of native coronary artery without angina pectoris; Z95.5 Presence of coronary angioplasty implant and graft; E78.5 Hyperlipidemia, unspecified; K21.9 Gastro-esophageal reflux disease without esophagitis; F41.9 Anxiety disorder, unspecified; H35.30 Unspecified macular degeneration; M19.012 Primary osteoarthritis, left shoulder; Z79.82 Long term (current) use of aspirin; Z79.899 Other long term (current) drug therapy; Z87.891 Personal history of nicotine dependence; Z87.19 Personal history of other diseases of the digestive system; Z90.49 Acquired absence of other specified parts of digestive tract; Z96.611 Presence of right artificial shoulder joint; Z96.643 Presence of artificial hip joint, bilateral; Z88.8 Allergy status to other drugs, medicaments and biological substances; Z91.040 Latex allergy status
CPT/HCPCS: 71046; 80048; 80053; 80061; 80143; 80179; 82248; 82436; 83605; 83880; 83930; 83935; 84132; 84300; 84484; 84550; 85025; 85027; 93005; 97161; 99285

== ENCOUNTER 2025-03-07 16:08 | Observation (INO) | payer OTHER, SELFPAY ==
[2025-03-07] VITALS (17 sets, daily range): BP systolic 136–196; BP diastolic 46–136; BMI 27.5
[2025-03-07] MEDS: NSS 500 IV (09:12)
[2025-03-07] MEDS: ZOFRAN 4 MG IV (09:17)
[2025-03-07 09:40] LABS: COVID-19 Antigen Negative (Negative)
[2025-03-07 09:41] LABS: Magnesium 1.5 mg/dl (1.6-2.3)
--- NOTE | 2025-03-07 10:28 | ED.GENMED ---
History of Present Illness
<LIV Ceballos Last Filed: 03/07/25 15:22>
General
Chief Complaint: Abdominal Symptoms
Time Seen by Provider: 03/07/25 08:37
History of Present Illness
History of Present Illness:
see MDM
Past History
<LIV Ceballos Last Filed: 03/07/25 15:22>
Past History
ED Past Medical History: CAD, GERD, HTN, Hypercholesterolemia, [place] and Other (Diverticulitis, arthritis, macular degeneration, anxiety)
ED Past Surgical History: Other (Incarcerated hernia repair, colostomy and reversal, bilateral total hip replacements, cholecystectomy)
Social History
Tobacco: Former smoker
Alcohol: None
Personal:
Living: with family
Employment: Retired
Phy Exam
<LIV Ceballos Last Filed: 03/07/25 15:22>
Physical Exam
Physical Exam:
see MDM
Sepsis
<LIV Ceballos Last Filed: 03/07/25 15:22>
Sepsis Screening
Sepsis Assessment: Sepsis Ruled Out
Sepsis Screen
Sepsis Screen: Sepsis Ruled Out
Date: 03/07/25
Time: 15:22
Course
<LIV Ceballos Last Filed: 03/07/25 15:22>
Orders/Labs/Results
Orders:
Orders
03/07/25 06:06
COVID-19 Antigen Urgent
Source: Nasal Swab
03/07/25 08:37
Electrocardiogram (*1) Urgent
Reason for Study: Fatigue / Weakness
03/07/25 08:38
EKG- Treatment ONCE
03/07/25 09:03
Comprehensive Metabolic Panel Urgent
Comment: ADD ON
Lactic Acid Urgent
Magnesium Urgent
03/07/25 09:04
CT Abd/Pel (IV only)-DH only Urgent
Comment:
Reason For Exam: vomiting, hernia, h/o bowel resection; weak
0.9% Sodium Chloride 500 ml [Nss] 500 ml IV BOLUS
Ondansetron Injectable [Zofran] 4 mg IV NOW STA
03/07/25 09:05
CT Head W/o Iv Contrast Urgent
Comment:
Reason For Exam: confusion
03/07/25 09:06
Complete Blood Count/With Diff Urgent
03/07/25 09:07
Influenza A+B Rapid Molecular Urgent
ANT Source: Nasal Swab
Specimen Description:
03/07/25 09:15
Blood Culture Q30M
ANT Source: Blood/Venous
Specimen Description:
03/07/25 09:52
0.9% Sodium Chloride 1000 ml [Nss] 1,000 ml IV BOLUS
03/07/25 10:16
CR Chest Portable - 1 View Urgent
Comment:
Reason For Exam: ams, vomiting
Reason Study Needs to be Portable: Unable to Transport
03/07/25 10:23
Morphine Sulfate 2 mg IV NOW STA
03/07/25 10:24
Blood Culture Q30M
ANT Source: Blood/Venous
Specimen Description:
Piperacillin/Tazo 3.375 Gram [Zosyn] 3.375 gram in 50 ml IV NOW
03/07/25 12:55
Urinalysis Reflex To Culture Urgent
Date Specimen was Collected: 03/07/25
Time Specimen was Collected: 12:30
Urine Microscopic Reflex Cult Urgent
03/07/25 14:54
Magnesium Sulfate 2 Gram/50 ml [Magnesium Sulfate] 2 gram in 50 ml IV NOW
03/07/25 15:06
Lactate Level [Lactic Acid] Urgent
Abnormal Lab Results
03/07/25 03/07/25 03/07/25
09:03 09:06 12:55
MCH 32.4 H pg
(27.0-31.0)
Absolute Neuts (auto) 8.9 H 10^3/uL
(1.4-6.5)
Absolute Lymphs (auto) 1.0 L 10^3/uL
(1.2-3.4)
Neutrophils % 84.8 H %
(42.2-75.2)
Lymphocytes % 9.4 L %
(20.5-51.1)
Sodium 131 L mmol/L
(135-145)
Glucose 145 H mg/dl
(70-99)
Lactic Acid 3.0 H mmol/L
(0.7-2.0)
Magnesium 1.5 L mg/dl
(1.6-2.3)
AST 39 H U/L
(14-36)
ALT 112 H U/L
(0-35)
Alkaline Phosphatase 127 H U/L
(38-126)
Urine Ketones 1+ A
(Negative)
Ur Occult Blood Reflex 1+ A
(Negative)
Urine Albumin (Reflex) 2+ A
(Neg - Trace)
03/07/25 09:06
03/07/25 09:03
Vital Signs
Initial and Last Documented VS:
Initial Vital Signs
Temp Pulse Resp BP Pulse Ox
37.9 C 76 26 158/83 98
03/07/25 08:32 03/07/25 08:32 03/07/25 08:32 03/07/25 08:32 03/07/25 08:32
Last Documented Vital Signs
Temp Pulse Resp BP Pulse Ox
37.2 C 64 17 160/64 98
03/07/25 13:12 03/07/25 13:12 03/07/25 13:12 03/07/25 13:12 03/07/25 13:12
<Lisa Quintana MD - Last Filed: 03/07/25 11:01>
Orders/Labs/Results
Orders:
Orders
03/07/25 06:06
COVID-19 Antigen Urgent
Source: Nasal Swab
03/07/25 08:37
Electrocardiogram (*1) Urgent
Reason for Study: Fatigue / Weakness
03/07/25 08:38
EKG- Treatment ONCE
03/07/25 09:03
Comprehensive Metabolic Panel Urgent
Comment: ADD ON
Lactic Acid Urgent
Magnesium Urgent
03/07/25 09:04
CT Abd/Pel (IV only)-DH only Urgent
Comment:
Reason For Exam: vomiting, hernia, h/o bowel resection; weak
0.9% Sodium Chloride 500 ml [Nss] 500 ml IV BOLUS
Ondansetron Injectable [Zofran] 4 mg IV NOW STA
03/07/25 09:05
CT Head W/o Iv Contrast Urgent
Comment:
Reason For Exam: confusion
03/07/25 09:06
Complete Blood Count/With Diff Urgent
03/07/25 09:07
Influenza A+B Rapid Molecular Urgent
ANT Source: Nasal Swab
Specimen Description:
03/07/25 09:15
Blood Culture Q30M
ANT Source: Blood/Venous
Specimen Description:
03/07/25 09:52
0.9% Sodium Chloride 1000 ml [Nss] 1,000 ml IV BOLUS
03/07/25 10:16
CR Chest Portable - 1 View Urgent
Comment:
Reason For Exam: ams, vomiting
Reason Study Needs to be Portable: Unable to Transport
03/07/25 10:23
Morphine Sulfate 2 mg IV NOW STA
03/07/25 10:24
Blood Culture Q30M
ANT Source: Blood/Venous
Specimen Description:
Piperacillin/Tazo 3.375 Gram [Zosyn] 3.375 gram in 50 ml IV NOW
03/07/25 12:55
Urinalysis Reflex To Culture Urgent
Date Specimen was Collected: 03/07/25
Time Specimen was Collected: 12:30
Urine Microscopic Reflex Cult Urgent
03/07/25 14:54
Magnesium Sulfate 2 Gram/50 ml [Magnesium Sulfate] 2 gram in 50 ml IV NOW
03/07/25 15:06
Lactate Level [Lactic Acid] Urgent
Abnormal Lab Results
03/07/25 03/07/25 03/07/25
09:03 09:06 12:55
MCH 32.4 H pg
(27.0-31.0)
Absolute Neuts (auto) 8.9 H 10^3/uL
(1.4-6.5)
Absolute Lymphs (auto) 1.0 L 10^3/uL
(1.2-3.4)
Neutrophils % 84.8 H %
(42.2-75.2)
Lymphocytes % 9.4 L %
(20.5-51.1)
Sodium 131 L mmol/L
(135-145)
Glucose 145 H mg/dl
(70-99)
Lactic Acid 3.0 H mmol/L
(0.7-2.0)
Magnesium 1.5 L mg/dl
(1.6-2.3)
AST 39 H U/L
(14-36)
ALT 112 H U/L
(0-35)
Alkaline Phosphatase 127 H U/L
(38-126)
Urine Ketones 1+ A
(Negative)
Ur Occult Blood Reflex 1+ A
(Negative)
Urine Albumin (Reflex) 2+ A
(Neg - Trace)
03/07/25 09:06
03/07/25 09:03
Vital Signs
Initial and Last Documented VS:
Initial Vital Signs
Temp Pulse Resp BP Pulse Ox
37.9 C 76 26 158/83 98
03/07/25 08:32 03/07/25 08:32 03/07/25 08:32 03/07/25 08:32 03/07/25 08:32
Last Documented Vital Signs
Temp Pulse Resp BP Pulse Ox
37.2 C 64 17 160/64 98
03/07/25 13:12 03/07/25 13:12 03/07/25 13:12 03/07/25 13:12 03/07/25 13:12
<Lisset Burleson PA-C - Last Filed: 03/07/25 15:22>
MDM/Problems Addressed
Differential Diagnosis Includes:
see MDM
MDM/Problems Addressed:
Note:
CHIEF COMPLAINT(S)
Nausea, vomiting, diarrhea, generalized weakness, and difficulty opening eyes.
HISTORY OF PRESENT ILLNESS
The patient is an 89-year-old female presenting with nausea, vomiting, diarrhea, and generalized weakness that began yesterday around 7 pm. her was triying to give history but seems anxious and not reliable. her granddaughter said that she
was vomiting since 7 pm until around midnight several times, mostly mild/mucsu but she was nauseated
her didn't see her overnight; pt said she had diarrhea this am but was gen weak; no falls. pt was a little confused last night as well, hallucinated visually.
.she had procedure in her eye a few days ago by the eye doctor, maybe for glaucoma??
this was unclear
She has a history of a perforated diverticulitis and was confirmed to have a hernia.
pt had colectomy and reversal 2003
she also is s/p eder in the past
pt is not having cp, headache, focal weakness, urinary symptoms
PAST MEDICAL AND SURGICAL HISTORY
The patient reports a history of perforated diverticulitis and the presence of a hernia.
EXTERNAL RECORDS REVIEWED
According to previous medical evaluations, the patient has a history of a perforated diverticulitis and has been treated by an eye doctor, but no surgical intervention was mentioned for the eye-related issue.
SOCIAL HISTORY
The patient lives with a family member and friends.
REVIEW OF SYSTEMS
- Gastrointestinal: Nausea, vomiting, diarrhea
- Neurological: Generalized weakness, difficulty with eye opening, hallucinations reported starting
PHYSICAL EXAM
GENERAL: Eyes closed, responds to verbal stimuli only, seems uncomfortable, actively vomiting
EYE: pupils equal and reactive
NECK: Supple
ENT: o/p clr, mmm.
CARDIAC: Regular rate and rhythm .
LUNGS: Clear breath sounds bilaterally, no acute respiratory distress, no wheezes/rales/rhonchi
ABDOMEN: Soft, large tender hernia ventral, does not seem reducible; normal bowel sounds
NEUROLOGICAL: Alert and oriented x 1; doesn't really communicate much; she opens eyes and follows simple commands
euqal strength
SKIN: Warm and dry, skin intact.
MUSCULOSKELETAL: No edema, well perfused.
PSYCH: sleeping most of the time
- Nursing notes reviewed and vital signs reviewed.
PROBLEM LIST
- Acute: Nausea, vomiting, diarrhea, generalized weakness, and difficulty opening eyes
PLAN
- Initiate intravenous access and obtain blood cultures and lactate.
- Monitor vital signs closely and provide supportive care to manage symptoms.
DIFFERENTIAL DIAGNOSIS
The differential diagnosis includes, in no particular order and is not limited to:
1. Gastroenteritis
2. Food poisoning
3. Dehydration
4. Electrolyte imbalance
5. Medication side effects
6. Eye infection or irritation
7. Intestinal obstruction
8. Urinary tract infection leading to sepsis
9. Stroke or transient ischemic attack
10. Hyperglycemia or hypoglycemia
89 y/o F
from home
n/v since 7 pm
weakness, confusion, hallucinating somewhat at home
borderline fever 100.2
vomiting here
abdomen tender with a largeh ernia ? incarcerated hernia possiblity
lactic elevated
will give fluids 20/kg since not full sepsis criteria; and pt has h/o chf; cxr indep reviewed, no obvious edema
pending ct scan.
pt has no focal deficits but really isn't too communicative.
CARE-UPDATE
03/07/25 - 12:50
The CAT scan results were reassuring, showing a bowel hernia that is not incarcerated and no acute findings indicative of fever and vomiting causes. There is suspicion of a urinary tract infection; will straight cath; otherwise unclear cause of
these symtpoms, could be enteritis/viral infection
Antibiotics have already been administered, and the patient is to be admitted to the hospital for further observation and management. pt is full code. The patients relatives are informed of the expected wait and advised to return in approximately
two hours for a further update.
<Lisset Burleson PA-C - Last Filed: 03/07/25 15:22>
*Pulse Oximetry
SaO2: 93
Oxygen Mode of Delivery: Room air
Patient hypoxic: no (98)
*Critical Care Note
Total Time (30-74mins, 75-104mins- exclusive of procedures): Not Applicable
ED Attending Note
<Lisset Burleson PA-C - Last Filed: 03/07/25 15:22>
-
Portions of this chart may have been created with voice recognition software.� Occasional wrong word or��sound alike� substitutions may have occurred due to the inherent limitations of voice recognition software.
<Lisa Quintana MD - Last Filed: 03/07/25 11:01>
ED Attending Note
Patient seen and examined by attending physician: Yes
I performed the substantive portion of visit, reviewed & personally made and approve the management plan that is documented in note by myself or DAVID.: Yes
ED Attending Note:
Patient is an 89-year-old female brought in by her for abdominal pain, vomiting and confusion. Patient has a firm nonreducible right abdominal hernia on exam. I did ask her if this is typical and he is not sure. He reports she
generally does not have any abdominal issues at baseline. Patient's lungs are clear. Patient's abdomen is distended but has normal bowel sounds. Patient does wince when I push her right abdominal area. Patient has 1+ pitting edema bilateral
lower extremities which states is normal.
Discharge Plan
Departure
Patient Disposition: Admit
Date of Disposition: 03/07/25
Time of Disposition: 12:56
Admit to: IMU
Presentation/result/management discussed w/ accepting MD/DO: Hospitalist
Condition: Fair
Covid-19: Not Applicable
Discharge Problem:
Vomiting, AMS (altered mental status)
Prescriptions:
No Action
simvastatin 20 MG tablet
20 mg PO QPM
aspirin 81 mg Tablet,Delayed Release (Dr/Ec)
81 mg PO DAILY
furosemide 20 mg tablet
20 mg PO DAILY Qty: 30 0RF
isosorbide mononitrate 30 mg tablet extended release 24 hr
30 mg PO DAILY Qty: 30 0RF
losartan 25 mg Tablet
25 mg PO DAILY
omeprazole 20 mg Capsule,Delayed Release(Dr/Ec)
20 mg PO DAILY
Referrals:
Vinnie Hsu DO [Family Provider]
Interventions
Interventions:
*Risk Screen - Suicide Last Done: 03/07/25 08:32
*General Assessment Last Done: 03/07/25 08:32
*Neglect/Abuse Screening Last Done: 03/07/25 08:32
*ED COVID-19 Vaccine History Last Done: 03/07/25 08:32
*ED Influenza Vaccine History Last Done: 03/07/25 08:32
[facility] Fall Risk Assessment Tool Last Done: 03/07/25 08:32
[id number] Assessment Last Done: 03/07/25 08:32
Discharge Date and Time
Print Language: BULGARIAN
--- NOTE | 2025-03-07 10:30 | EDRN ---
this RN noticed that the pts Sp02 dipped to 90%, this RN placed the pt on 3L NC and Sp02 came up to 98%, no s/s of distress, will continue to monitor the pt closely
[2025-03-07] MEDS: NSS 1000 IV (10:37)
[2025-03-07] MEDS: ZOSYN 50 IV (10:37)
[2025-03-07] MEDS: MORPHINE SULFATE 2 MG IV (10:37)
[2025-03-07 10:55] LABS: ALT (SGPT) 112 U/L (0-35); AST (SGOT) 39 U/L (14-36); Albumin 4.7 g/dl (3.5-5.0); Alkaline Phosphatase 127 U/L (38-126); Blood Urea Nitrogen 11 mg/dl (7-17); Calcium 9.4 mg/dl (8.4-10.2); Carbon Dioxide 24 mmol/L (22-30); Chloride 98 mmol/L (98-107); Estimated Creatinine Clearance 61 ml/min; Glucose 145 mg/dl (70-99); Potassium 3.9 mmol/L (3.5-5.1); Sodium 131 mmol/L (135-145); Total Protein 8.2 g/dl (6.3-8.2); eGFR > 60.00
[2025-03-07 11:13] LABS: Hematocrit 43.7 % (37.0-47.0); Hemoglobin 15.2 g/dL (12.0-16.0); Mean Corp Hgb Conc. 34.8 g/dL (33.0-37.0); Mean Corpuscular Volume 93.2 fL (81.0-99.0); Nucleated Red Blood Cells % 0 %; Red Cell Dist. Width 12.1 % (11.5-14.5)
[2025-03-07 13:24] LABS: Urine Character Clear (Clear)
--- NOTE | 2025-03-07 13:33 | CM ---
Chart reviewed. CM attempted to talk with patient at ED bedside but she is sleeping
Per ED nurse Kylie pt would not be able to answer any questions
OB call to [facility] [place] at [phone]
Pt lives with in a split home
Ambulating with RW
Per dtr no aide service on regular basis
PCP Dr. Vinnie Hsu
Pharmacy ; she thinks [facility]
no hx of VN nor SNF per dtr
DCP is to go home with services vs SNF
once evaluated by PT
CM will continue to follow up for any dcp needs
[2025-03-07 13:42] LABS: Urine Red Blood Cell 0-2 /HPF (0-2); Urine White Cell None Seen /HPF (0-5)
--- NOTE | 2025-03-07 15:00 | EDRN ---
the pt is becoming more alert, the pt is attempting to climb out of the stretcher, pt educated on fall risk
[2025-03-07] MEDS: MAGNESIUM SULFATE 50 IV (15:02)
--- NOTE | 2025-03-07 15:34 | HPS.HSE ---
Addendum entered and electronically signed by Blessing Qiu MD 03/07/25 17:23:
Seen and examined the patient with the resident. Agree with the plan of care. See changes in my documentation
Patient's was at bedside giving history.
This is a 89-year-old female who had an injection in the left eye for macular degeneration on . Yesterday she took a Percocet which was prescribed for her . Around 4 PM she went to the bathroom and kept saying 'I do not know what is
going on with me.' called the granddaughter and they got up to bed. Around 11 PM she woke up again confused. No fevers. Today she had vomiting and slightly confused again therefore they brought her to the hospital.
On examination patient is awake and alert she is aware that she is at the hospital she got the date and month wrong
She does not know what happened or yesterday but able to answer the questions about her medications.
states that she looks much better now.
She also stated that she has not been taking many of her medicines as her doctor told her to stop it.
EKG-sinus rhythm nonspecific ST-T changes
Chest x-ray reviewed by me-slightly permanent pulmonary vascular congestion osteoarthritis, arthroplasty of the shoulder
Head CT-no acute changes
CT abdomen and pelvis-urology chronic fluid collection in the right anterior abdominal wall dating back to 2008 likely postoperative seroma. Right lateral abdominal wall hernia containing dilated segment of ascending colon. Smaller hernia in the
right anterior abdomen wall with a short segment of nondilated small bowel. No inflammation or fluid in the hernial sacs. No bowel obstruction. Severe aortobiiliac calcified atherosclerosis.
Cardiovascular system S1-S2 appreciated
Chest clear to auscultation
Abdomen soft and nontender
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
Pupils equal and reactive
Bilateral edema of the feet
# TME/altered mental status
Likely secondary to Percocet which patient took prescribed for her
Check urine drug screen
Lactic acidosis unclear reason-improved unclear if this is a lab drawl variation
CT of the head unremarkable, urinalysis and chest x-ray not revealing any infection, COVID and influenza negative
Patient received Zosyn in the ER
Hold off on further antibiotics there is no clear source of infection
Wait for cultures and watch the patient clinically
Patient had a similar admission in December 2023
# Nausea and vomiting-mild constipation on the CAT scan
Clear liquid diet and advance as tolerated
# Hyponatremia-mild. Improved. Follow
# Chronic HFpEF-continue Lasix, Imdur, losartan tomorrow. Patient stated that she has not been taking these medicines
# Coronary disease with history of LAD stent 2007-continue aspirin, statin will be held. Cardiac catheterization 02/09/2023-widely patent LAD stent with mild residual coronary disease
# Hypomagnesemia-replace
# Hypertension-continue losartan
# Hyperlipidemia/atherosclerosis abdominal blood vessels-hold Lipitor
# Chronically elevated LFTs-history of cholecystectomy in the past
Tylenol level unremarkable
Follow LFTs
Hold Lipitor
# History of colostomy and reversal for perforated diverticulitis
# History of incarcerated hernia repair and a seroma on the abdomen
# GERD/hiatal hernia-continue PPI
# History of polymyalgia rheumatica
# Macular degeneration-gets injections
# Diverticulosis
# H/O migraine
# DVT prophylaxis-Lovenox
# Full code
Discussed with at bedside
Discussed with nursing
Original Note:
Family Physician
-
Family Physician: Vinnie Hsu
Chief Complaint
-
Altered mental status, Vomiting and Nausea
History of Present Illness
HPI obtained via telephone from patient's Andrés and a patient, as the patient is confused and unable to provide reliable history.
Mrs. Verdugo is a 89y/o F with PMH of perforated diverticulitis, abdominal hernia presented to ED on 03/07/2025 by her with complaints of change in mental status and vomiting. Yesterday around 4 PM she went to the bathroom and then she stood
up and kept saying 'I do not know what is going on with me'. The called a granddaughter for help then they put her in the bed so she can rest. Around 11 PM she woke up and kept saying she is confused. On the baseline she is very sharp, not
confused. Then again she fell asleep. 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 This morning around 5:30 AM he saw his standing without moving, she vomited once. Per patient, she did not
have diarrhea, constipation, chest pain, headache. Nobody sick in the household. She denies pain with urination. She denies headache, chest pain, palpitations, falls.
Medical History
Past Medical History
Past Medical History: Reports CHF, GERD and HTN
Additional Past Medical History:
Perforated diverticulitis, abdominal hernia
Past Surgical History: Reports Bowel Resection, Cholecystectomy, Gynocological and Orthopedic
Additional Past Surgical History:
Colectomy and reversal in 2003, s/p cholecystectomy, hysterectomy, bilateral total hip arthroplasty, bilateral ocular lens implants, right total shoulder arthroplasty
Social History
Unable to obtain full social history at this time due to: Acuity
Tobacco: Non-smoker
Alcohol: None
Drug: None
Personal:
Living: With Family ( Andrés)
Family History
Family History: Not pertinent
Allergies / Home Medications
Allergies reflects when Allergies were last updated in [facility].
Home Medications with original date entered in [facility]
Allergy/Medication List:
Allergies
Allergy/AdvReac Type Severity Reaction Status Date / Time
latex (Latex) Allergy Itching Verified 12/16/23 11:21
lisinopril Allergy coughing Verified 12/16/23 11:21
Home Medications
simvastatin 20 mg tablet 20 mg PO QPM High cholesterol 08/17/21
aspirin 81 mg tablet,delayed release 81 mg PO DAILY 02/09/23
furosemide 20 mg tablet 20 mg PO DAILY #30 tabs 12/18/23
isosorbide mononitrate 30 mg tablet,extended release 24 hr 30 mg PO DAILY #30 tabs 12/18/23
losartan 25 mg tablet 25 mg PO DAILY 03/07/25
omeprazole 20 mg capsule,delayed release 20 mg PO DAILY 03/07/25
If medication reconciliation has not been performed, why?: Unresponsive
Review of Systems
-
Unable to obtain full review of systems at this time due to: Acuity
History Source: Patient
Constitutional: Reports No Symptoms
EENT: Reports No Symptoms
Respiratory: Reports No Symptoms
Cardiac: Reports No Symptoms
Abdomen/GI: Reports Vomiting
: Reports No Symptoms
Musculoskeletal: Reports No Symptoms
Skin: Reports No Symptoms
Neurological: Reports No Symptoms
Endocrine: Reports No Symptoms
Hematologic/Lymphatic: Reports No Symptoms
Psych: Reports Calm
Physical Exam
Vital Signs
Vital Signs
Temp Pulse Resp BP Pulse Ox
98.9 F 64 17 160/64 98
03/07/25 13:12 03/07/25 13:12 03/07/25 13:12 03/07/25 13:12 03/07/25 13:12
Physical Exam
General: Well Developed and Well Nourished
HEENT: NormoCephalic, Moist mucous membranes, Atraumatic, No Ptosis, Nose Appears Normal and Oxygen (3L NC)
Respiratory: Clear
Cardiac: S1/S2 and Regular Rhythm
Breast: Deferred by me
GI: Soft, Tender (Right mid and lower abdomen) and Distended
Rectal: Deferred by Provider
Genito-urinary: Deferred by me
Musculoskeletal: No Clubbing, No Cyanosis, Edema, Left Lower Extremity and Edema, Right Lower Extremity
Skin: Warm and Dry
Neuro: No Motor Deficits, Cranial Nerves Intact, No Sensory Deficits and Other (Lethargic, oriented to place, not to person or time or situation)
Hematologic/Lymphatic: No Lymphadenopathy
Psych: Calm
Laboratory Results
-
03/07/25 09:06
03/07/25 09:03
Laboratory Results
Lactic Acid 1.5 mmol/L (0.7-2.0) 03/07/25 15:06
Total Bilirubin 1.2 mg/dl (0.2-1.3) 03/07/25 09:03
AST 39 U/L (14-36) H 03/07/25 09:03
ALT 112 U/L (0-35) H 03/07/25 09:03
Alkaline Phosphatase 127 U/L (38-126) H 03/07/25 09:03
Impression/Plan
-
IMPRESSION:
Mrs. Verdugo is a 89y/o F with PMH of perforated diverticulitis, abdominal hernia presented to ED on 03/07/2025 by her with complaints of change in mental status and vomiting
Imaging
CT Abd/pelvis (IV only) 03/07/2025
-Large chronic fluid collection in the right anterior abdominal wall, which has been present dating back to 2008, most suggestive of a postoperative seroma.
-Right lateral abdominal wall hernia containing a nondilated segment of the ascending colon.
-Smaller hernia of the right anterior upper abdominal wall containing a short segment of nondilated small bowel.
-No significant inflammation or fluid in the hernia sacs. No evidence for a bowel obstruction.
-Severe aortobiiliac calcified atherosclerosis.
CT Head W/o Iv Contrast 03/07/2025
-Moderate age-related parenchymal atrophy.
-No intra- or extra-axial mass, hemorrhage, or fluid collection.
-Moderate subcortical, deep, and periventricular white matter low-attenuation, compatible with changes of chronic small vessel ischemic disease.
-The imaged paranasal sinuses and mastoid air cells are clear. Bilateral ocular lens implants.
CR Chest Portable 03/07/2025
-Slightly prominent vascular markings suspicious for pulmonary vascular congestion.
-No focal consolidation, pleural effusion, or pneumothorax.
-Stable cardiomediastinal silhouette.
-Chronic degenerative changes of the spine. Right total shoulder arthroplasty.
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
PLAN:
Altered Mental Status , DDx: Dehydration, UTI, Gastroenteritis, Upper respiratory infection, Stroke , [place]
- Admitted to observational services
- Patient is lethargic, on exam neurologic exam non focal
- CT scan of the head - unremarkable
- WBCs normal, afebrile, lactic acid improved-unlikely underlying infection
- IV Zosyn #D1 for possible unknown source of infection?
- Urinalysis- negative
- Blood Cx- pending
Dehydration 2/2 Nausea and Vomiting
-At ED she received 1L NS
-Zofran for nausea
Abdominal Vertical Hernia
- On exam a size of a football, no warmth to touch, tender, non reducible
- CT scan no obstruction
Elevated LFTs
- ALT 112, AST 39, ALP 127 with a hx of cholecystectomy for records
- CT scan of the abdomen unremarkable
- Could be fatty liver? dehydration?
- Urine drug screening - pending
Hyponatremia
-Previously admitted with hyponatremia and confusion in 2023 per records
-Na 131 - received IV NS at ED
-Recheck Na level
CAD with a mid LAD stenting
-Continue Aspirin
-Continue Isosorbide mononitrate
-ECG- unremarkable
HFpEF, EF 56%
-on exam bilateral feet swelling chronic per , Lungs clear
-Chest Xray - pulmonary vascular congestion
-Repeat chest Xray in A.M
-Hold lasix
-Low Mg 1.5 - replete
Essential Hypertension
-Continue Losartan
Hyperlipidemia
-Continue Atorvastatin
DVT prophylaxis Lovenox 40mg
Full Code
[2025-03-07 16:32] LABS: Sodium 133 mmol/L (135-145)
--- NOTE | 2025-03-07 17:10 | EDRN ---
this RN called the receiving unit and notified them that paper report was going to be tubed up
[2025-03-07 17:49] LABS: Acetaminophen < 10 ug/ml (10-30)
[2025-03-07] MEDS: IMDUR (EXTENDED RELEASE) 30 MG PO (18:21)
[2025-03-07] MEDS: ASPIR LOW (ENTERIC COATED) 81 MG PO (18:22)
[2025-03-07] MEDS: LOVENOX 40 MG SC (18:22)
[2025-03-07] MEDS: COZAAR 25 MG PO (18:22)
[2025-03-07] MEDS: PROTONIX 40 MG PO (18:22)
--- NOTE | 2025-03-07 19:30 | PTCARENOTE ---
Assumed care of patient from previous RN - patient appears confused but awake and alert during change of shift. recently left to go home. Patient requesting to use restroom, but needed pullover to bed once admitted. Offered patient bedpan at
this time. Patient states she was unable to go, as it does not 'feel right' to use the bedpan. Reports the urge had disappeared and will attempt again later. Call ibarra in reach. Bed alarm maintained. Will continue to monitor.
[2025-03-08 00:27] VITALS: BP 157/66
--- NOTE | 2025-03-08 00:49 | PTCARENOTE ---
Patient requesting to get OOB to go to the bathroom. Assisted from bed to bathroom with 2 person assist and use of RW - patient steady and tolerated well. Patient appears to be more oriented at this time, pleasant and talkative. Able to void on
toilet, states she feels much better now that she was able to go. Assisted back to bed, call ibarra in reach and reviewed use. Will monitor.
[2025-03-08 06:00] VITALS: BMI 26.6
[2025-03-08 06:13] LABS: ALT (SGPT) 79 U/L (0-35); AST (SGOT) 32 U/L (14-36); Albumin 3.7 g/dl (3.5-5.0); Alkaline Phosphatase 94 U/L (38-126); Blood Urea Nitrogen 11 mg/dl (7-17); Calcium 8.9 mg/dl (8.4-10.2); Carbon Dioxide 27 mmol/L (22-30); Chloride 101 mmol/L (98-107); Estimated Creatinine Clearance 61 ml/min; Glucose 107 mg/dl (70-99); Hematocrit 38.0 % (37.0-47.0); Hemoglobin 12.9 g/dL (12.0-16.0); Magnesium 2.3 mg/dl (1.6-2.3); Mean Corp Hgb Conc. 33.9 g/dL (33.0-37.0); Mean Corpuscular Volume 93.4 fL (81.0-99.0); Potassium 3.7 mmol/L (3.5-5.1); Red Cell Dist. Width 12.2 % (11.5-14.5); Sodium 133 mmol/L (135-145); Total Protein 6.6 g/dl (6.3-8.2); eGFR > 60.00
--- NOTE | 2025-03-08 07:04 | W.PN.HOSP.TC ---
Addendum entered and electronically signed by Blessing Qiu MD 03/08/25 12:38:
Seen and examined the patient with the resident. Agree with the plan of care. See changes in my documentation
Patient's was at bedside giving history.
This is a 89-year-old female who had an injection in the left eye for macular degeneration on . Yesterday she took a Percocet which was prescribed for her . Around 4 PM she went to the bathroom and kept saying 'I do not know what is
going on with me.' called the granddaughter and they got up to bed. Around 11 PM she woke up again confused. No fevers. Today she had vomiting and slightly confused again therefore they brought her to the hospital.
On examination patient is awake and alert she is aware that she is at the hospital she got the date and month wrong
She does not know what happened or yesterday but able to answer the questions about her medications.
states that she looks much better now.
She also stated that she has not been taking many of her medicines as her doctor told her to stop it.
EKG-sinus rhythm nonspecific ST-T changes
Chest x-ray reviewed by me-slightly permanent pulmonary vascular congestion osteoarthritis, arthroplasty of the shoulder
Head CT-no acute changes
CT abdomen and pelvis-urology chronic fluid collection in the right anterior abdominal wall dating back to 2008 likely postoperative seroma. Right lateral abdominal wall hernia containing dilated segment of ascending colon. Smaller hernia in the
right anterior abdomen wall with a short segment of nondilated small bowel. No inflammation or fluid in the hernial sacs. No bowel obstruction. Severe aortobiiliac calcified atherosclerosis.
Cardiovascular system S1-S2 appreciated
Chest clear to auscultation
Abdomen soft and nontender
POSSUM TRAPPER nonfocal exam
Pupils equal and reactive
Bilateral edema of the feet-better
Patient looks much better today awake alert oriented. Does not know what exactly happened or yesterday.
# TME/altered mental status
Likely secondary to Percocet which patient took prescribed for her
Check urine drug screen-with opiates and oxycodone
Lactic acidosis unclear reason-improved unclear if this is a lab drawl variation versus hypotension
CT of the head unremarkable, urinalysis and chest x-ray not revealing any infection, COVID and influenza negative
Patient received Zosyn in the ER
Held off on further antibiotics there is no clear source of infection-patient is much better and improved
Wait for cultures and watch the patient clinically
Patient had a similar admission in December 2023
# Nausea and vomiting-advance diet
# Hyponatremia-mild. Improved. Follow
# Chronic HFpEF-continue Lasix, Imdur, losartan . Patient stated that she has not been taking these medicines
# Coronary disease with history of LAD stent 2007-continue aspirin, statin will be held. Cardiac catheterization 02/09/2023-widely patent LAD stent with mild residual coronary disease
# Hypomagnesemia-replaced
# Hypertension-continue Losartan
# Hyperlipidemia/atherosclerosis abdominal blood vessels-Restart Lipitor
# Chronically elevated LFTs-History of cholecystectomy in the past
Tylenol level unremarkable
Follow LFTs
Restart Lipitor
# History of colostomy and reversal for perforated diverticulitis
# History of incarcerated hernia repair and a seroma on the abdomen
# GERD/hiatal hernia-continue PPI
# History of polymyalgia rheumatica
# Macular degeneration-gets injections
# Diverticulosis
# H/O migraine
# DVT prophylaxis-Lovenox
# Full code
Spoke to patient's granddaughter and updated. Advised to see the patient and let me know if she is back to baseline
Diet advanced
Physical therapy consulted
If patient is doing well may be home later today.
Original Note:
Today's Communication/Plan
-
PT/OT
advance diet to regular
if tolerated discharge today
Assessment / Plan
Assessment / Plan
IMPRESSION:
Mrs. Verdugo is a 89y/o F with PMH of perforated diverticulitis, abdominal hernia presented to ED on 03/07/2025 by her with complaints of change in mental status and vomiting
Imaging
CT Abd/pelvis (IV only) 03/07/2025
-Large chronic fluid collection in the right anterior abdominal wall, which has been present dating back to 2008, most suggestive of a postoperative seroma.
-Right lateral abdominal wall hernia containing a nondilated segment of the ascending colon.
-Smaller hernia of the right anterior upper abdominal wall containing a short segment of nondilated small bowel.
-No significant inflammation or fluid in the hernia sacs. No evidence for a bowel obstruction.
-Severe aortobiiliac calcified atherosclerosis.
CT Head W/o Iv Contrast 03/07/2025
-Moderate age-related parenchymal atrophy.
-No intra- or extra-axial mass, hemorrhage, or fluid collection.
-Moderate subcortical, deep, and periventricular white matter low-attenuation, compatible with changes of chronic small vessel ischemic disease.
-The imaged paranasal sinuses and mastoid air cells are clear. Bilateral ocular lens implants.
CR Chest Portable 03/07/2025
-Slightly prominent vascular markings suspicious for pulmonary vascular congestion.
-No focal consolidation, pleural effusion, or pneumothorax.
-Stable cardiomediastinal silhouette.
-Chronic degenerative changes of the spine. Right total shoulder arthroplasty.
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
Chest Xray 03/08/2025
-Improvement of mild interstitial opacities compared to the chest radiograph from 03/07/2025.
-No focal consolidation, pleural effusion, or pneumothorax. Stable mild enlargement of the cardiac silhouette.
-Right total shoulder arthroplasty. Chronic degenerative changes of the left shoulder and spine.
PLAN:
Altered Mental Status , DDx: Dehydration, UTI, Gastroenteritis, Upper respiratory infection, Stroke , [place]
- She took her 's Percocet, she had injections the day prior of AMS for macular degeneration
- Admitted to observational services
- Her AMS improved. Ax3.
- CT scan of the head - unremarkable
- WBCs normal, afebrile, lactic acid improved-unlikely underlying infection
- IV Zosyn x1 was give at ED - D/c unclear if if there is an infection
- Urinalysis- negative
- Blood Cx- pending
- PT/OT
Dehydration 2/2 Nausea and Vomiting
-At ED she received 1L NS
-Zofran for nausea
Abdominal Vertical Hernia
- On exam a size of a football, no warmth to touch, tender, non reducible
- CT scan no obstruction
Elevated LFTs
- ALT 112, AST 39, ALP 127 with a hx of cholecystectomy for records
- CT scan of the abdomen unremarkable
- LFT improving
- Urine drug screening - positive for oxycodone
Hyponatremia
-Previously admitted with hyponatremia and confusion in 2023 per records
-Na 131 - received IV NS at ED
-improving Na133
CAD with a mid LAD stenting
-Continue Aspirin
-Continue Isosorbide mononitrate
-ECG- unremarkable
HFpEF, EF 56%
-on exam bilateral feet swelling chronic per , Lungs clear
-Chest Xray - pulmonary vascular congestion
-Repeat chest Xray in A.M
-Hold lasix
-Low Mg 1.5 - replete
Essential Hypertension
-Continue Losartan
Hyperlipidemia
-Continue Atorvastatin
DVT prophylaxis Lovenox 40mg
Full Code
Anticipated Discharge: Today
Subjective/Interval History
-
Date of Service: March 08, 2025
Today she feels much better. She feels more conscious but does not remember much about yesterday. She does not know what happened. She takes Percocet at home from her just to give her some energy. She says it helps improving pain all
over her body.
Objective Data
-
Labs:
Laboratory Results
03/08/25
05:12
WBC 11.9 H
Hgb 12.9
Hct 38.0
Plt Count
Sodium 133 L
Potassium 3.7
Chloride 101
Carbon Dioxide 27
BUN 11
Creatinine 0.6
Glucose 107 H
Calcium 8.9
Total Bilirubin 1.0
AST 32
ALT 79 H
Alkaline Phosphatase 94
Vital Signs:
Vital Signs
Temp Pulse Resp BP Pulse Ox
97.3 F 84 16 157/66 94
03/08/25 00:27 03/08/25 00:27 03/08/25 00:27 03/08/25 00:27 03/08/25 00:27
Review of Systems
-
History Source: Patient
Constitutional: Reports No Symptoms
EENT: Reports No Symptoms Reported
Respiratory: Reports No Symptoms
Cardiac: Reports No Symptoms
Abdomen/GI: Reports No Symptoms
Breast: Reports No Symptoms
Genitourinary: Reports No Symptoms
Musculoskeletal: Reports No Symptoms
Skin: Reports No Symptoms
Neuro: Reports No Symptoms
Physical Exam
-
General: Well Developed, Well Nourished, No Apparent Distress, Comfortable and Conversant
HEENT: Normocephalic, Atraumatic and Nose Appears Normal
Respiratory: Clear to Auscultation
Cardiac: Regular Rhythm and S1/S2
Breast: Deferred by me
GI: Soft, Nontender, Nondistended, Normal Bowel Sounds and Other (vertical hernia)
Rectal: Deferred by Provider
Genito-urinary: Deferred by me
Musculoskeletal: No Clubbing, No Cyanosis, Edema, Right Lower Extrem and Edema, Left Lower Extrem
Skin: Warm and Dry
Neuro: AO x 3, No Motor Deficits, Nonfocal/Grossly Intact, Central Nerve's Intact and No Sensory Deficits
Hematologic / Lymphatic: No Lymphadenopathy
Psych: Calm
[2025-03-08] MEDS: ASPIR LOW (ENTERIC COATED) 81 MG PO (08:27)
[2025-03-08] MEDS: IMDUR (EXTENDED RELEASE) 30 MG PO (08:27)
[2025-03-08] MEDS: PROTONIX 40 MG PO (08:27)
[2025-03-08] MEDS: COZAAR 25 MG PO (08:33)
[2025-03-08 08:52] VITALS: BP 153/76
[2025-03-08] MEDS: TYLENOL 650 MG PO (11:31)
[2025-03-08 13:30] VITALS: BP 156/82; BP 177/91; PULSE 81
[2025-03-08 13:40] VITALS: BP 156/82; BP 171/91; PULSE 91
[2025-03-08 15:27] VITALS: BP 128/76
[2025-03-08] MEDS: LOVENOX 40 MG SC (17:49)
[2025-03-08 23:00] VITALS: BP 126/60
--- NOTE | 2025-03-08 23:49 | PTCARENOTE ---
Pt. would like to brush teeth in the morning.
[2025-03-09 06:00] VITALS: BMI 26.1
--- NOTE | 2025-03-09 07:28 | W.PN.HOSP.TC ---
Addendum entered and electronically signed by Blessing Qiu MD 03/09/25 15:02:
Seen and examined the patient earlier today. Late documentation.
Patient was feeling well no complaints. Awake alert and oriented
Exam is unremarkable
Patient was made aware not to take any Percocets at home
Physical therapy evaluation awaited
Possible discharge today after that if stable
I spoke to patient's granddaughter in detail yesterday and updated
Original Note:
Today's Communication/Plan
-
Follow PT recs
Consult CM VN
Plan to discharge today
Assessment / Plan
Assessment / Plan
IMPRESSION:
Mrs. Verdugo is a 89y/o F with PMH of perforated diverticulitis, abdominal hernia presented to ED on 03/07/2025 by her with complaints of change in mental status and vomiting
Imaging
CT Abd/pelvis (IV only) 03/07/2025
-Large chronic fluid collection in the right anterior abdominal wall, which has been present dating back to 2008, most suggestive of a postoperative seroma
-Right lateral abdominal wall hernia containing a nondilated segment of the ascending colon
-Smaller hernia of the right anterior upper abdominal wall containing a short segment of nondilated small bowel
-No significant inflammation or fluid in the hernia sacs. No evidence for a bowel obstruction
-Severe aortobiiliac calcified atherosclerosis
CT Head W/o Iv Contrast 03/07/2025
-Moderate age-related parenchymal atrophy.
-No intra- or extra-axial mass, hemorrhage, or fluid collection.
-Moderate subcortical, deep, and periventricular white matter low-attenuation, compatible with changes of chronic small vessel ischemic disease.
-The imaged paranasal sinuses and mastoid air cells are clear. Bilateral ocular lens implants.
CR Chest Portable 03/07/2025
-Slightly prominent vascular markings suspicious for pulmonary vascular congestion.
-No focal consolidation, pleural effusion, or pneumothorax.
-Stable cardiomediastinal silhouette.
-Chronic degenerative changes of the spine. Right total shoulder arthroplasty.
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
Chest Xray 03/08/2025
-Improvement of mild interstitial opacities compared to the chest radiograph from 03/07/2025.
-No focal consolidation, pleural effusion, or pneumothorax. Stable mild enlargement of the cardiac silhouette.
-Right total shoulder arthroplasty. Chronic degenerative changes of the left shoulder and spine.
PLAN:
Altered Mental Status , DDx: Dehydration, UTI, Gastroenteritis, Upper respiratory infection, Stroke , [place]
- She took her 's Percocet, she had injections the day prior of AMS for macular degeneration
- Admitted to observational services
- Her AMS improved. Ax3.
- CT scan of the head - unremarkable
- WBCs normal, afebrile, lactic acid improved-unlikely underlying infection
- IV Zosyn x1 was give at ED -discontinued no source of infection was found
- Urinalysis- negative
- Blood Cx-NG 48H
- PT/OT
- Consult CM VN
Dehydration 2/2 Nausea and Vomiting
-At ED she received 1L NS
-Zofran for nausea
Abdominal Vertical Hernia
- On exam a size of a football, no warmth to touch, tender, non reducible
- CT scan no obstruction
Elevated LFTs
- ALT 112, AST 39, ALP 127 with a hx of cholecystectomy for records
- CT scan of the abdomen unremarkable
- LFT improving
- Urine drug screening - positive for oxycodone
Hyponatremia
-Previously admitted with hyponatremia and confusion in 2023 per records
-Na 131 - received IV NS at ED
-improving Na134
CAD with a mid LAD stenting
-Continue Aspirin
-Continue Isosorbide mononitrate
-ECG- unremarkable
HFpEF, EF 56%
-on exam bilateral feet swelling chronic per , Lungs clear
-Chest Xray - pulmonary vascular congestion
-Repeat chest Xray in A.M
-Hold lasix
-Low Mg 1.5 - repleted
Essential Hypertension
-Continue Losartan
Hyperlipidemia
-Continue Atorvastatin
Called the patient's Andrés, updated him about her health and possible discharge after PT for today. He is going to come to visit her. Granddaughter cannot make it because they are at school. Addressed concerns.
DVT prophylaxis Lovenox 40mg
Full Code
Anticipated Discharge: Today
Subjective/Interval History
-
Date of Service: March 09, 2025
She complains about not being able to sleep all night. She does not feel clear but she remembers walking in the hallway yesterday once with PT.
Objective Data
-
Labs:
Laboratory Results
03/09/25
07:23
WBC Pending
Hgb Pending
Hct Pending
Plt Count Pending
Sodium Pending
Potassium Pending
Chloride Pending
Carbon Dioxide Pending
BUN Pending
Creatinine Pending
Glucose Pending
Calcium Pending
Vital Signs:
Vital Signs
Temp Pulse Resp BP Pulse Ox
97.9 F 86 16 126/60 94
03/08/25 23:00 03/08/25 23:00 03/08/25 23:00 03/08/25 23:00 03/08/25 23:00
I&O
03/08/25 03/09/25 03/10/25
06:59 06:59 06:59
Intake Total 480 / 480
Balance 480 / 480
Review of Systems
-
History Source: Patient
Constitutional: Reports No Symptoms
EENT: Reports No Symptoms Reported
Respiratory: Reports No Symptoms
Cardiac: Reports No Symptoms
Abdomen/GI: Reports No Symptoms
Breast: Reports No Symptoms
Genitourinary: Reports No Symptoms
Musculoskeletal: Reports No Symptoms
Skin: Reports No Symptoms
Neuro: Reports No Symptoms
Endocrine: Reports No Symptoms
Hematologic / Lymphatic: Reports No Symptoms
Physical Exam
-
General: Well Developed, Well Nourished, No Apparent Distress, Comfortable and Conversant
HEENT: Normocephalic, Atraumatic and Nose Appears Normal
Respiratory: Clear to Auscultation
Cardiac: Regular Rhythm and S1/S2
Breast: Deferred by me
GI: Soft, Nontender, Nondistended, Normal Bowel Sounds and Other (vertical hernia)
Rectal: Deferred by Provider
Genito-urinary: Deferred by me
Musculoskeletal: No Clubbing, No Cyanosis, Edema, Right Lower Extrem and Edema, Left Lower Extrem
Skin: Warm and Dry
Neuro: AO x 3, No Motor Deficits, Nonfocal/Grossly Intact, Central Nerve's Intact and No Sensory Deficits
Hematologic / Lymphatic: No Lymphadenopathy
Psych: Calm
[2025-03-09 07:55] VITALS: BP 175/64
[2025-03-09] MEDS: ASPIR LOW (ENTERIC COATED) 81 MG PO (08:19)
[2025-03-09] MEDS: PROTONIX 40 MG PO (08:19)
[2025-03-09] MEDS: COZAAR 25 MG PO (08:19)
[2025-03-09] MEDS: IMDUR (EXTENDED RELEASE) 30 MG PO (08:19)
[2025-03-09 08:55] LABS: Hematocrit 40.3 % (37.0-47.0); Hemoglobin 13.6 g/dL (12.0-16.0); Mean Corp Hgb Conc. 33.7 g/dL (33.0-37.0); Mean Corpuscular Volume 94.4 fL (81.0-99.0); Red Cell Dist. Width 12.1 % (11.5-14.5)
[2025-03-09 08:59] LABS: Blood Urea Nitrogen 11 mg/dl (7-17); Calcium 9.2 mg/dl (8.4-10.2); Carbon Dioxide 25 mmol/L (22-30); Chloride 101 mmol/L (98-107); Estimated Creatinine Clearance 54 ml/min; Glucose 113 mg/dl (70-99); Potassium 3.5 mmol/L (3.5-5.1); Sodium 134 mmol/L (135-145); eGFR > 60.00
--- NOTE | 2025-03-09 12:02 | VNURNOTE ---
Home Health Liaison attempted to meet with patient at bedside to discuss [facility] nurse/therapy, visits, schedule and homebound status. She was sound asleep and was not disturbed. Left contact number for [facility] at bedside. Reached out to patient's
spouse, primary contact listed. No answer, left message with contact #.
[facility] referral completed in [facility].
--- NOTE | 2025-03-09 13:55 | CM ---
Patient seen at bedside
OBS status
discharge today
PT rec home health
Options reviewed, prefers [facility]
notified Randi liaison [facility], [facility]
PLAN: Home with [facility]
to transport
[2025-03-09 14:18] VITALS: BP 146/70
[2025-03-09 14:52] VITALS: PULSE 77; O2SAT 98
--- NOTE | 2025-03-09 16:24 | W.DCSUMMARY ---
Discharge Summary
Discharge Data
Date of Admission: 03/07/25
Date of Discharge: 03/09/25
-
Pending Results: No
Hospital Course
Discharging Physician : Dr. Manasa Ni, Dr. Blessing Qiu
Disposition : Home with Home care
Primary care physician : Vinnie Hsu,
Principal Discharge diagnosis :
Altered Mental Status
Dehydration secondary to Nausea and Vomiting
Chronic Discharge diagnosis :
Abdominal Vertical Hernia
Hyponatremia
CAD with a mid LAD stenting
Heart failure preserved ejection fraction
Essential hypertension
Hyperlipidemia
Hospital Course :
Mrs. Verdugo is a 89y/o F with PMH of perforated diverticulitis, abdominal hernia, hyperlipidemia, hypertension, CAD presented to ED on 03/07/2025 by her with complaints of change in mental status and vomiting. Her reported her
receiving needles in her eyes for macular degeneration the day before it started. Also, she has been taking his Percocet medication for pain relief. At the ED after r/o possible causes of AMS she received supportive care her mental status started to
improve. She was admitted to the observation service and supportive care was provided. She was seen by physical therapist and was recommended using rolling walker for assistance. After staying 2 nights at the hospital she is being discharged with
Home PT and VN. Her mental status improved.
Recommendations
Please stop using Percocet
Please follow-up with your PCP within a week
Please stay hydrated and continue taking your daily medications
We are going to arrange a home visiting nurse and a home physical therapist
Important imaging findings :
CT Abd/pelvis (IV only) 03/07/2025
-Large chronic fluid collection in the right anterior abdominal wall, which has been present dating back to 2008, most suggestive of a postoperative seroma
-Right lateral abdominal wall hernia containing a nondilated segment of the ascending colon
-Smaller hernia of the right anterior upper abdominal wall containing a short segment of nondilated small bowel
-No significant inflammation or fluid in the hernia sacs. No evidence for a bowel obstruction
-Severe aortobiiliac calcified atherosclerosis
CT Head W/o Iv Contrast 03/07/2025
-Moderate age-related parenchymal atrophy.
-No intra- or extra-axial mass, hemorrhage, or fluid collection.
-Moderate subcortical, deep, and periventricular white matter low-attenuation, compatible with changes of chronic small vessel ischemic disease.
-The imaged paranasal sinuses and mastoid air cells are clear. Bilateral ocular lens implants.
CR Chest Portable 03/07/2025
-Slightly prominent vascular markings suspicious for pulmonary vascular congestion.
-No focal consolidation, pleural effusion, or pneumothorax.
-Stable cardiomediastinal silhouette.
-Chronic degenerative changes of the spine. Right total shoulder arthroplasty.
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
Chest Xray 03/08/2025
-Improvement of mild interstitial opacities compared to the chest radiograph from 03/07/2025.
-No focal consolidation, pleural effusion, or pneumothorax. Stable mild enlargement of the cardiac silhouette.
-Right total shoulder arthroplasty. Chronic degenerative changes of the left shoulder and spine.
Discharge Plan
-
Patient Disposition: Home with Home Care
Discharge Diagnosis/Procedures: Altered Mental Status
Dehydration 2/2 Nausea and Vomiting
Abdominal Vertical Hernia
Hyponatremia
CAD with a mid LAD stenting
Heart failure preserved ejection fraction
Essential hypertension
Hyperlipidemia
Condition: Fair
Diet: 2 Gram Sodium and Restrict fluids to 64 oz
Activity: As tolerated and With Walker
Bathing Restrictions: None
Other Services: VN and PT
Specialty Instructions: Weigh Daily- Call MD for wt gain/loss 3 lbs overnight/5 lbs in 1 week
Referrals:
Vinnie Hsu, DO [Family Provider] - in less than 1 week
Additional Discharge Medication Instructions: Please follow-up with your PCP within a week
Please stop using Percocet
Please stay hydrated and continue taking your daily medications
We are going to arrange a home visiting nurse and a home physical therapist
Prescriptions:
Continued
simvastatin 20 MG tablet
20 mg PO QPM
aspirin 81 mg Tablet,Delayed Release (Dr/Ec)
81 mg PO DAILY
furosemide 20 mg tablet
20 mg PO DAILY Qty: 30 0RF
isosorbide mononitrate 30 mg tablet extended release 24 hr
30 mg PO DAILY Qty: 30 0RF
losartan 25 mg Tablet
25 mg PO DAILY
omeprazole 20 mg Capsule,Delayed Release(Dr/Ec)
20 mg PO DAILY
Discharge Orders:
Discharge Patient (As Directed); Ordered 03/09/25
Ordered By: Manasa Ni
Discharge Date and Time
Discharge Date/Time: 03/09/25 16:10
Print Language: [place]
== END 2025-03-09 16:10 | disposition home health service (06) ==
LOC: 3 WEST ACU 16:08
PROVIDERS: Physician Assistant; ADMITTING PHYSICIAN Hospitalist; EMERGENCY PHYSICIAN Emergency Medicine; FAMILY PHYSICIAN Family Medicine
DX: G92.8 Other toxic encephalopathy (principal); R41.82 Altered mental status, unspecified; E86.0 Dehydration; Z11.52 Encounter for screening for COVID-19; E87.20 Acidosis, unspecified; R11.2 Nausea with vomiting, unspecified; E87.1 Hypo-osmolality and hyponatremia; I50.30 Unspecified diastolic (congestive) heart failure; I11.0 Hypertensive heart disease with heart failure; E83.42 Hypomagnesemia; Z87.891 Personal history of nicotine dependence; H35.30 Unspecified macular degeneration; K43.9 Ventral hernia without obstruction or gangrene; I25.10 Atherosclerotic heart disease of native coronary artery without angina pectoris; Z95.5 Presence of coronary angioplasty implant and graft; I70.0 Atherosclerosis of aorta; M19.012 Primary osteoarthritis, left shoulder; Z79.899 Other long term (current) drug therapy
CPT/HCPCS: 70450; 71045; 71046; 74177; 80048; 80053; 80143; 80306; 80307; 81003; 81015; 83605; 83735; 84295; 85025; 85027; 87040; 87502; 87811; 93005; 96361; 96365; 96366; 96367; 96375; 97116; 97163; 97167; 99285; G0378; Q9967